=== PATIENT | male | born 1970 | race Caucasian/White ===

== ENCOUNTER 2020-01-15 10:56 | Emergency (ER) | payer OTHER ==
[~2020-01-15] VITALS: Ht 175.3 cm; Wt 74.9 kg
[2020-01-15 10:56] VITALS: BP 159/94
[2020-01-15] MEDS ORDERED: IV NORMAL SALINE 1000ML BAG 1,000 ML IV ONE (11:15)
--- NOTE | 2020-01-15 11:17 | PHYS DOC ---
Past Medical History Past Medical History: Seizure General Adult EDM: Chief Complaint: BACK PAIN OR INJURY HPI: HPI: 49-year-old male with significant history of polysubstance abuse, seizure disorder on Depakote 500 mg twice daily, who presents via EMS for the evaluation of breakthrough seizure. He reports a reported breakthrough seizure about 1 hour prior to arrival. Unclear duration of seizure activity. He has reportedly been out of his Depakote for the last 3 weeks or so. He also reports chronic unchanged baseline low back pain, without saddle anesthesia, bowel or bladder dysfunction. There is no noted tongue trauma or incontinence with his seizure. EMS states that the patient has called EMS for transport to [facility] several times over the last several days for various complaints. Review of Systems: Review of Systems: Gen: No fever, chills. Eyes: No blurred vision, diplopia. ENT: No nasal congestion, sore throat. CV: No CP, palpitations. Resp. No SOB, cough. GI: No abd pain, N/V. : No dysuria, hematuria. Neuro: No LEMUS, dizziness, weakness. Reports seizure. MSK: No myalgia, arthralgia. Reports back pain. Skin: No acute rash or lesion. Heart Score: Risk Factors: Risk Factors: DM, Current or recent (<one month) smoker, HTN, HLP, family history of CAD, obesity. Risk Scores: Score 0 - 3: 2.5% MACE over next 6 weeks - Discharge Home Score 4 - 6: 20.3% MACE over next 6 weeks - Admit for Clinical Observation Score 7 - 10: 72.7% MACE over next 6 weeks - Early Invasive Strategies Physical Exam: PE: Gen: NAD. Head: NC/AT. Eyes: No scleral icterus. No conjunctival injection. PERRL. ENT: MMM. Posterior OP clear. Neck: Supple. NT. No meningismus. CV: RRR. Peripheral pulses intact. Resp: CTAB. Abd: Soft. NT. ND. MSK: No peripheral cyanosis. No edema. Neuro: A&Ox3. Strength & sensation grossly intact throughout. No dysmetria. Skin. Warm. Dry. Psych: Flat affect. EKG: EKG: [] Radiology/Procedures: Radiology/Procedures: [] Course & Med Decision Making: Course & Med Decision Making Pertinent Labs and Imaging studies reviewed. (See chart for details) In summary, 49M p/w breakthrough seizure, though A&Ox4 on arrival, in the setting of being without his depakote. No focal neuro deficits. HDS. No meningismus. Patient was confronted because he was found to be smoking in his room. He became mildly agitated and thereafter wished to leave AMA. Risks of doing so were explained to the patient including but not limited to , disa bility, missed Dx, etc. Dragon Disclaimer: Torie Disclaimer: This electronic medical record was generated, in whole or in part, using a voice recognition dictation system. Departure Departure Impression: Primary Impression: Seizure Additional Impression: Left against medical advice Disposition: 01 HOME, SELF-CARE Condition: STABLE Justicifation of Admission Dx: Justifications for Admission: Justification of Admission Dx: N/A THERESE DORANTES DO Jan 15, 2020 11:17
[2020-01-15] MEDS ORDERED: DIVALPROEX DELAYED RELEASE 500 MG TABLET.DR. PO ONE (11:30)
[2020-01-15] MEDS ORDERED: LIDOCAINE (700MG/PATCH) PATCH. TD ONE (11:30)
[2020-01-15 11:50] LABS: BASO % 1 % (0-3); EOS # 0.2 x10^3/uL (0.0-0.7); EOS % 3 % (0-3); HEMATOCRIT 41.1 % (39.0-53.0); HEMOGLOBIN 14.1 g/dL (13.0-17.5); LYMPH # 0.9 x10^3/uL (1.0-4.8); LYMPH % 16 % (24-48); MEAN CORPUSCULAR HEMOGLOBIN 30 pg (25-35); MEAN CORPUSCULAR HGB CONC 34 g/dL (31-37); MEAN CORPUSCULAR VOLUME 87 fL (79-100); MONO # 0.3 x10^3/uL (0.0-1.1); MONO % 6 % (0-9); NEUT # 4.1 x10^3/uL (1.8-7.7); NEUT % 74 % (31-73); PLATELET COUNT 247 x10^3/uL (140-400); RED CELL DISTRIBUTION WIDTH 14.4 % (11.5-14.5); WHITE BLOOD COUNT 5.6 x10^3/uL (4.0-11.0)
[2020-01-15 12:03] LABS: CALCIUM 8.8 mg/dL (8.5-10.1); CREATININE 0.9 mg/dL (0.7-1.3); GFR 90.4; POTASSIUM 3.8 mmol/L (3.5-5.1)
[2020-01-15 12:09] LABS: ALBUMIN 3.5 g/dL (3.4-5.0); ALBUMIN/GLOBULIN RATIO 1.1 (1.0-1.7); MAGNESIUM 1.9 mg/dL (1.8-2.4); TOTAL BILIRUBIN 0.5 mg/dL (0.2-1.0); TOTAL PROTEIN 6.6 g/dL (6.4-8.2)
== END 2020-01-15 12:00 | disposition left against medical advice (07) ==
LOC: ER 10:56
DX: G40.909 Epilepsy, unspecified, not intractable, without status epilepticus (principal); M54.5 Low back pain; G89.29 Other chronic pain; F19.10 Other psychoactive substance abuse, uncomplicated
CPT/HCPCS: 36415; 80053; 83735; 84484; 85025; 99283; J7030

== ENCOUNTER 2020-01-25 22:40 | Emergency (ER) | payer OTHER ==
[~2020-01-25] VITALS: Ht 175.3 cm; Wt 75.0 kg
[2020-01-26] MEDS ORDERED: LORA0.5T96 PO (00:46)
--- NOTE | 2020-01-26 00:46 | PHYS DOC ---
Past Medical History Past Medical History: Asthma, COPD, Seizure Additional Past Medical Histor: TBI, Learning disability Past Medical History Limited secondary to mental disability status post TBI Past Surgical History: Other Additional Past Surgical Histo: Unknown, pt. poor historian Past Surgical History Limited secondary to mental disability status post TBI Smoking Status: Current Every Day Smoker Alcohol Use: Occasionally Drug Use: None Social History Limited secondary to mental disability status post TBI General Adult EDM: Chief Complaint: ASTHMA HPI: HPI: Patient is a 49 year old with past medical history of asthma and COPD presents with report of chest tightness and shortness of air that is been ongoing for the past few days. Patient was seen at [facility] twice yesterday. Patient was given a pro-air inhaler which she has at home but reports he is not been using it. Patient does report he continues to smoke with his shortness of air. Patient also reports some palpitations. Reports increased stressors at home. History of present illness partially limited due to patient's mental disability status post TBI Review of Systems: Review of Systems: Constitutional: Denies fever or chills Eyes: Denies redness or eye pain HENT: Denies nasal congestion or sore throat Respiratory: Denies cough; reports shortness of breath Cardiovascular: Denies chest pain or palpitations GI: Denies abdominal pain, nausea, or vomiting : Denies dysuria or hematuria Musculoskeletal: Denies back pain or joint pain Integument: Denies rash or skin lesions Neurologic: Denies headache, focal weakness or sensory changes Complete systems were reviewed and found to be within normal limits, except as documented in this note. Current Medications: Current Medications Medications (Trade) Dose Ordered Sig/Farideh Start Time Stop Time Status Last Admin Dose Admin Lorazepam (Ativan) 0.5 mg 1X ONCE 01/26/20 01:00 01/26/20 01:01 Allergies: Allergies: Allergies Coded Allergies Type Severity Reaction Last Updated Verified acetaminophen Allergy Unknown rash 01/15/20 Yes codeine Allergy Unknown rash 01/15/20 Yes Physical Exam: PE: Constitutional: Well developed, well nourished, anxious, non-toxic appearance HENT: Normocephalic, atraumatic Eyes: Conjunctiva normal, no discharge Neck: Normal range of motion, no tenderness, supple Cardiovascular: Heart rate normal, regular rhythm Lungs & Thorax: Bilateral breath sounds clear to auscultation, no wheezing Abdomen: Soft, no tenderness Skin: Warm, dry, no erythema, no rash Extremities: No tenderness, ROM intact, no edema Neurologic: Alert and oriented, no focal deficits noted Psychologic: Affect anxious, judgment normal EKG: EKG: @2301 NSR at 94bpm, NO ST elevation, QRS 76ms, QT/QTc 338/428ms, artifact noted to V1 Radiology/Procedures: Radiology/Procedures: [] Course & Med Decision Making: Course & Med Decision Making Patient presents with report of shortness of breath and palpitations. HPI and physical exam appear more consistent with anxiety. Patient was able to go out and smoke a cigarette and speaks full sentences. Lungs clear. Anxiety addressed. Patient reports he recently had chest x-ray and lab draws at [facility] yesterday. EKG stable. Patient stable for discharge with outpatient follow-up with PCP. Discussed findings and plan with patient, who acknowledges understanding and agreement. Sadion Disclaimer: Dragon Disclaimer: This electronic medical record was generated, in whole or in part, using a voice recognition dictation system. Departure Departure Impression: Primary Impression: Anxiety Disposition: HOME, SELF-CARE Condition: STABLE Referrals: DAIN PANTOJA (PCP) Patient Instructions: Anxiety and Panic Attacks, [id number] Scripts Lorazepam (ATIVAN) 0.5 Mg Tablet 0.5 MG PO TID PRN for ANXIETY, #10 TAB Prov: ROBER SCHWARTZ DO 01/26/20 Justicifation of Admission Dx: Justifications for Admission: Justification of Admission Dx: N/A ROBER SCHWARTZ DO Jan 26, 2020 00:46
[2020-01-26 00:54] VITALS: BP 141/86
[2020-01-26] MEDS ORDERED: LORazepam 0.5 MG TABLET PO ONE (01:00)
--- NOTE | 2020-01-26 15:21 | EKG ---
[facility] [address] [place] [address] Test Date: 2020-01-25 Test Time: 23:01:15 Pat Name: RAJWINDER PEDERSON Department: Room: Gender: M [employer]se[employer]: : 1970 Requested By: ROBER SCHWARTZ Order Number: [id number] Reading MD: Zev Diallo Measurements Intervals [place] Rate: 94 P: 34 HI: 138 QRS: 41 QRSD: 76 T: 46 QT: 338 QTc: 428 Interpretive Statements SINUS RHYTHM LEFT ATRIAL ABNORMALITY Electronically Signed On 02-17-2020 10:19:10 CDT by Zev Diallo
== END 2020-01-26 01:31 | disposition home or self-care (01) ==
LOC: ER 22:40
DX: F41.9 Anxiety disorder, unspecified (principal); R07.89 Other chest pain; J45.909 Unspecified asthma, uncomplicated; F17.200 Nicotine dependence, unspecified, uncomplicated; Z88.5 Allergy status to narcotic agent; Z88.6 Allergy status to analgesic agent
CPT/HCPCS: 93005; 99283; 99284

== ENCOUNTER 2020-02-19 04:21 | Emergency (ER) | payer OTHER ==
[~2020-02-19] VITALS: Ht 175.3 cm; Wt 78.6 kg
[~2020-02-19 04:21] MED LIST: LORA0.5T96 PO
--- NOTE | 2020-02-19 05:12 | PHYS DOC ---
Past Medical History Past Medical History: Asthma, COPD, Seizure Additional Past Medical Histor: TBI, Learning disability Past Surgical History: Other Additional Past Surgical Histo: Unknown, pt. poor historian Smoking Status: Current Every Day Smoker Alcohol Use: Rarely Drug Use: None General Adult EDM: Chief Complaint: Congestion HPI: HPI: Patient is a 49 year old male with past medical history of TBI and learning disability presents via ems for evaluation of shortness of breath. Patient called 911 and requested to be transported to [facility]. Yesterday patient received at [employer] for 911 abuse. Patient states yesterday he called 911 30x because he is obsessed with calling 911. He states he feels short of breath. States it has been ongoing x 2 weeks. He denies any cough or congestion fever or chills. He states he has chronic chest pain. He is requesting peptobismal, sprite, and something to eat. Patient is in no acute distress, vital signs are stable. Review of Systems: Review of Systems: Constitutional: Denies fever or chills. [] Eyes: Denies change in visual acuity. [] HENT: Denies nasal congestion or sore throat. [] Respiratory: Denies cough or shortness of breath. [] Cardiovascular: Denies chest pain or edema. [] GI: Denies abdominal pain, nausea, vomiting, bloody stools or diarrhea. [] : Denies dysuria. [] Musculoskeletal: Denies back pain or joint pain. [] Integument: Denies rash. [] Neurologic: Denies headache, focal weakness or sensory changes. [] Endocrine: Denies polyuria or polydipsia. [] Lymphatic: Denies swollen glands. [] Psychiatric: Denies depression or anxiety. [] Heart Score: Risk Factors: Risk Factors: DM, Current or recent (<one month) smoker, HTN, HLP, family history of CAD, obesity. Risk Scores: Score 0 - 3: 2.5% MACE over next 6 weeks - Discharge Home Score 4 - 6: 20.3% MACE over next 6 weeks - Admit for Clinical Observation Score 7 - 10: 72.7% MACE over next 6 weeks - Early Invasive Strategies Allergies: Allergies: Allergies Coded Allergies Type Severity Reaction Last Updated Verified acetaminophen Allergy Intermediate rash 01/26/20 Yes codeine Allergy Intermediate rash 01/26/20 Yes Physical Exam: PE: Constitutional: Well developed, well nourished, no acute distress, non-toxic appearance. [] HENT: Normocephalic, atraumatic, bilateral external ears normal, oropharynx moist, no oral exudates, nose normal. [] Eyes: PERRLA, EOMI, conjunctiva normal, no discharge. [] Neck: Normal range of motion, no tenderness, supple, no stridor. [] Cardiovascular:Heart rate regular rhythm, no murmur [] Lungs & Thorax: Bilateral breath sounds clear to auscultation [] Abdomen: Bowel sounds normal, soft, no tenderness, no masses, no pulsatile sultana s. [] Skin: Warm, dry, no erythema, no rash. [] Back: No tenderness, no CVA tenderness. [] Extremities: No tenderness, no cyanosis, no clubbing, ROM intact, no edema. [] Neurologic: Alert and oriented X 3, normal motor function, normal sensory function, no focal deficits noted. [] Psychologic: Affect normal, judgement normal, mood normal. [] EKG: EKG: [] Radiology/Procedures: Radiology/Procedures: [] Course & Med Decision Making: Course & Med Decision Making Pertinent Labs and Imaging studies reviewed. (See chart for details) [] Dragon Disclaimer: Dragon Disclaimer: This electronic medical record was generated, in whole or in part, using a voice recognition dictation system. Departure Departure Impression: Primary Impression: Feared condition not demonstrated Referrals: DAIN PANTOJA (PCP) Justicifation of Admission Dx: Justifications for Admission: Justification of Admission Dx: N/A KATHIE HERRON DO Feb 19, 2020 05:12
[2020-02-19 05:28] VITALS: BP 147/97
== END 2020-02-19 06:30 | disposition home or self-care (01) ==
LOC: ER 04:21
DX: R06.02 Shortness of breath (principal); R07.89 Other chest pain; J44.9 Chronic obstructive pulmonary disease, unspecified; F17.200 Nicotine dependence, unspecified, uncomplicated; Z87.820 Personal history of traumatic brain injury; Z98.890 Other specified postprocedural states; Z88.5 Allergy status to narcotic agent; Z88.6 Allergy status to analgesic agent
CPT/HCPCS: 99283

== ENCOUNTER 2020-04-08 18:27 | Emergency (ER) | payer OTHER ==
[~2020-04-08] VITALS: Ht 167.6 cm; Wt 86.0 kg
[2020-04-08 19:18] VITALS: BP 182/99
== END 2020-04-08 20:22 | disposition left against medical advice (07) ==
LOC: ER 18:27
DX: R11.2 Nausea with vomiting, unspecified (principal); R10.9 Unspecified abdominal pain; R19.7 Diarrhea, unspecified; Z53.21 Procedure and treatment not carried out due to patient leaving prior to being seen by health care provider
CPT/HCPCS: 82962

== ENCOUNTER 2021-05-31 19:18 | Inpatient (IN) | payer OTHER, MEDICAID ==
[~2021-05-31] VITALS: Ht 175.3 cm; Wt 79.4 kg
[2021-05-31 20:15] LABS: BASO % 1 % (0-3); EOS # 0.1 x10^3/uL (0.0-0.7); EOS % 2 % (0-3); HEMATOCRIT 34.2 % (39.0-53.0); HEMOGLOBIN 11.9 g/dL (13.0-17.5); LYMPH # 1.7 x10^3/uL (1.0-4.8); LYMPH % 30 % (24-48); MEAN CORPUSCULAR HEMOGLOBIN 30 pg (25-35); MEAN CORPUSCULAR HGB CONC 35 g/dL (31-37); MEAN CORPUSCULAR VOLUME 86 fL (79-100); MONO # 0.6 x10^3/uL (0.0-1.1); MONO % 11 % (0-9); NEUT # 3.2 x10^3/uL (1.8-7.7); NEUT % 57 % (31-73); PLATELET COUNT 180 x10^3/uL (140-400); RED BLOOD COUNT 3.97 x10^6/uL (4.30-5.70); RED CELL DISTRIBUTION WIDTH 13.6 % (11.5-14.5); WHITE BLOOD COUNT 5.6 x10^3/uL (4.0-11.0)
[2021-05-31] MEDS ORDERED: IV NORMAL SALINE 1000ML BAG 1,000 ML IV ONE (20:15)
--- NOTE | 2021-05-31 20:16 | PHYS DOC ---
Past Medical History Past Medical History: Asthma, COPD, Seizure Additional Past Medical Histor: TBI, Learning disability Past Surgical History: Other Additional Past Surgical Histo: Unknown, pt. poor historian Smoking Status: Current Every Day Smoker Alcohol Use: Occasionally Drug Use: None General Adult EDM: Chief Complaint: DIARRHEA HPI: HPI: 50 yo M past medical history of hypertension, epilepsy, bipolar disorder, schizophrenia and baseline tremor, presents to the ED with complaints of 4 episodes of watery, brown diarrhea prior to ED arrival. Patient was brought to the ED by EMS, clothing soiled with stool. Patient denies any recent anti biotics or hospitalizations. Reports associated diffuse "stomach pain". Denies any known history of Covid and has not been vaccinated for Covid. No associated fever chills, sore throat, cough, anorexia or fatigue, weakness, chest pain, shortness of breath, nausea or vomiting. Denies any alcohol or drug use. Denies any seizure activity, syncope or head injury. Review of Systems: Review of Systems: Constitutional: Denies fever or chills. [] Eyes: Denies change in visual acuity. [] HENT: Denies nasal congestion or sore throat. [] Respiratory: Denies cough or shortness of breath. [] Cardiovascular: Denies chest pain or edema or syncope GI: Denies nausea, vomiting, melena or hematochezia : Denies dysuria or hematuria Musculoskeletal: Denies back pain or joint pain. [] Integument: Denies rash or diaphoresis Neurologic: Denies headache, focal weakness or sensory changes. [] Endocrine: Denies polyuria or polydipsia. [] Lymphatic: Denies swollen glands. [] Psychiatric: Denies depression or anxiety. [] Heart Score: C/O Chest Pain: No Risk Factors: Risk Factors: DM, Current or recent (<one month) smoker, HTN, HLP, family history of CAD, obesity. Risk Scores: Score 0 - 3: 2.5% MACE over next 6 weeks - Discharge Home Score 4 - 6: 20.3% MACE over next 6 weeks - Admit for Clinical Observation Score 7 - 10: 72.7% MACE over next 6 weeks - Early Invasive Strategies Current Medications: Current Medications Medications (Trade) Dose Ordered Sig/Farideh Start Time Stop Time Status Last Admin Dose Admin Sodium Chloride 1,000 ml @ 1,000 mls/hr 1X ONCE 05/31/21 20:15 05/31/21 21:14 UNV Allergies: Allergies: Allergies Coded Allergies Type Severity Reaction Last Updated Verified acetaminophen Allergy Intermediate rash 01/26/20 Yes codeine Allergy Intermediate rash 01/26/20 Yes methylphenidate Allergy Intermediate 05/31/21 Yes Physical Exam: PE: Constitutional: Unkept, non-toxic appearance. HENT: Normocephalic, atraumatic, dry mucous membranes Eyes: EOMI, conjunctiva normal, no discharge. Neck: Normal range of motion, supple, Cardiovascular: S1/2 present, regular rhythm Lungs & Thorax: Speaking in full sentences, bilateral equal chest rise, no tachypnea or increased work of breathing Abdomen: soft, no distention, reports diffuse tenderness but has no rigidity or guarding, no elicited grimace Skin: Warm, dry, no erythema, no rash. [] Extremities: No tenderness, no cyanosis, Neurologic: Alert and oriented X 3, normal motor function, normal sensory function, no focal deficits noted tremulous extremities Psychologic: Flat affect, calm mood EKG: EKG: [] Radiology/Procedures: Radiology/Procedures: IMAGING REPORT Signed PATIENT: RAJWINDER PEDERSON AACCOUNT: [id number] : 1970 LOCATION: ER AGE: 50 SEX: M EXAM STATUS: REG ER ORD. PHYSICIAN: GABRIELA KAHN DO REASON: diffuse abd pain PROCEDURE: CT ABD PELV W/ IV CONTRST ONLY Exam: CT abdomen/pelvis with intravenous contrast Indication: Diffuse abdominal pain Comparison: CT abdomen and pelvis 02/27/2013 Technique: Helical CT imaging performed of the abdomen and pelvis after the intravenous administration of 75 mL Omnipaque 300 contrast. Sagittal and coronal reformats were obtained. One or more of the following individualized dose reduction techniques were util ized for this examination: 1. Automated exposure control 2. Adjustment of the mA and/or kV according to patient size 3. Use of iterative reconstruction technique. Findings: Exam is mildly limited by motion artifact. Lower chest: Lung bases are clear. Heart is normal in size. There are coronary artery calcifications. Liver: The liver is mildly enlarged measuring 19.7 cm in length. No focal liver lesion. Gallbladder/Biliary Tree: Gallbladder is contracted. Bile ducts are normal. Pancreas: Normal Spleen: Normal. Adrenal Glands: Normal. Kidneys/Ureters/Bladder: Kidneys are normal size and enhance symmetrically. There is a 1.8 cm simple cyst in the inferior left renal pole. No hydronephrosis. Ureters and bladder are normal Reproductive Organs: Prostate gland is normal. Stomach, small bowel, and colon: Small hiatal hernia. The small bowel is normal. There the appendix is mildly enlarged with wall thickening, hyperenhancement, and mild surrounding fat stranding, suspicious for acute appendicitis. The appendix measures up to 9 mm in diameter. The colon is unremarkable. Vasculature: No aortic aneurysm. Mild scattered calcified atherosclerosis. Lymph Nodes: No lymphadenopathy. Peritoneum and retroperitoneum: No free fluid or free air. Bones: No acute osseous abnormality. There is degenerative joint disease of the hips, greater on the right. IMPRESSION: 1. Uncomplicated acute appendicitis. 2. Small hiatal hernia. FOR INTERNAL CODING PURPOSES Critical result: Findings discussed with Gabriela Kahn at 05/31/2021 9:24 PM. And 10:55 PM RESULT CODE: (C) Electronically signed by: Lexi Moore MD (05/31/2021 10:59 PM) [facility] DICTATED and SIGNED BY: LEXI MOORE MD DATE: 05/31/21 [id number] Course & Med Decision Making: Course & Med Decision Making Pertinent Labs and Imaging studies reviewed. (See chart for details) Concern for acute, uncomplicated appendicitis in the setting of multiple e pisodes of diarrhea and diffuse abdominal pain. Patient n.p.o. and started on cefoxitin. Will admit to medicine for further medical management. Spoke to Dr. Rivas, general surgery regarding this patient-full consultation to follow. Patient stable at time of admission and agrees with this plan. I have spoken with the patient and/or caregivers. I have explained the patient's condition, diagnosis and treatment plan based on the information available to me at this time. I have answered the patient's and/or caregivers questions and answered any concerns. The patient and/or caregivers have as good an understanding of the patient's diagnosis, condition and treatment plan as can be expected at this point. The patient has been stabilized within the capability of the emergency department. The patient will be transported for further care and management or will be moved to an observation or inpatient service. I have communicated with the staff or medical practitioner taking over this patient's care. Torie Disclaimer: Torie Disclaimer: This electronic medical record was generated, in whole or in part, using a voice recognition dictation system. Departure Departure Impression: Primary Impression: Acute appendicitis Additional Impression: Diarrhea Disposition: ADMITTED INPATIENT Admitting Physician: ASAF Day) Condition: STABLE Referrals: DAIN PANTOJA (PCP) GABRIELA KAHN DO May 31, 2021 20:16
[2021-05-31 20:28] LABS: CALCIUM 8.6 mg/dL (8.5-10.1); CREATININE 0.8 mg/dL (0.7-1.3); GFR 103.2; POTASSIUM 3.4 mmol/L (3.5-5.1)
[2021-05-31] MEDS ORDERED: IOHEXOL 300 MG/ML 100ML VIAL. IV ONE (20:30)
[2021-05-31 20:36] LABS: ALBUMIN 3.6 g/dL (3.4-5.0); ALBUMIN/GLOBULIN RATIO 1.1 (1.0-1.7); MAGNESIUM 1.9 mg/dL (1.8-2.4); TOTAL BILIRUBIN 0.2 mg/dL (0.2-1.0); TOTAL PROTEIN 6.9 g/dL (6.4-8.2)
[2021-05-31 20:42] LABS: BARBITURATES NEG (NEG); BENZODIAZEPINES NEG (NEG); CANNABINOIDS NEG (NEG); COCAINE NEG (NEG); METHADONE NEG (NEG); OPIATES NEG (NEG); PHENCYCLIDINE NEG (NEG)
[2021-05-31 20:43] LABS: AMPHETAMINE/METHAMPHETAMINE NEG (NEG)
[2021-05-31] MEDS ORDERED: CONTRAST GIVEN. MC PRN (20:45)
[2021-05-31] MEDS ORDERED: MIDAZOLAM HCL/PF 5 MG/5 ML VIAL. NS ONE (22:00)
--- NOTE | 2021-05-31 23:01 | RAD ---
Exam: CT abdomen/pelvis with intravenous contrast Indication: Diffuse abdominal pain Comparison: CT abdomen and pelvis 02/27/2013 Technique: Helical CT imaging performed of the abdomen and pelvis after the intravenous administratio n of 75 mL Omnipaque 300 contrast. Sagittal and coronal reformats were obtained. One or more of the following individualized dose reduction techniques were utilized for this examinat ion: 1. Automated exposure control 2. Adjustment of the mA and/or kV according to patient size 3. Use of iterative reconstruction technique. Findings: Exam is mildly limited by motion artifact. Lower chest: Lung bases are clear. Heart is normal in size. There are coronary artery calcifications. Liver: The liver is mildly enlarged measuring 19.7 cm in length. No focal liver lesion. Gallbladder/Biliary Tree: Gallbladder is contracted. Bile ducts are normal. Pancreas: Normal Spleen: Normal. Adrenal Glands: Normal. Kidneys/Ureters/Bladder: Kidneys are normal size and enhance symmetrically. There is a 1.8 cm simple cyst in the inferior left renal pole. No hydronephrosis. Ureters and bladder are normal Reproductive Organs: Prostate gland is normal. Stomach, small bowel, and colon: Small hiatal hernia. The small bowel is normal. There the appendix i s mildly enlarged with wall thickening, hyperenhancement, and mild surrounding fat stranding, suspici ous for acute appendicitis. The appendix measures up to 9 mm in diameter. The colon is unremarkable. Vasculature: No aortic aneurysm. Mild scattered calcified atherosclerosis. Lymph Nodes: No lymphadenopathy. Peritoneum and retroperitoneum: No free fluid or free air. Bones: No acute osseous abnormality. There is degenerative joint disease of the hips, greater on the right. IMPRESSION: 1. Uncomplicated acute appendicitis. 2. Small hiatal hernia. FOR INTERNAL CODING PURPOSES Critical result: Findings discussed with Gabriela Ware at 05/31/2021 9:24 PM. And 10:55 PM RESULT CODE: (C) Electronically signed by: Lexi Moore MD (05/31/2021 10:59 PM) [facility]
[2021-05-31] MEDS ORDERED: ONDANSETRON PF 4 MG/2 ML VIAL. IVP PRN (23:15)
[2021-05-31 23:54] VITALS: BP 107/61
[2021-06-01] MEDS ORDERED: DIVA500T2 PO (00:04)
[2021-06-01] MEDS: IV NORMAL SALINE 1000ML BAG 1,000 ML IV SCH ×4 (00:31→19:24)
[2021-06-01] MEDS ORDERED: NICOTINE 21MG PATCH. TD PRN ×2 (01:00→01:15)
[2021-06-01] MEDS ORDERED: ONDANSETRON PF 4 MG/2 ML VIAL. IVP PRN ×2 (01:00→13:00)
[2021-06-01] MEDS ORDERED: BENZOCAINE/MENTHOL LOZENGE. PO PRN (01:00)
[2021-06-01] MEDS ORDERED: NICOTINE POLACRILEX 2MG GUM PACKAGE of 12. BC PRN (01:00)
[2021-06-01] MEDS: PIPERACILLIN/TAZOBACTAM 3.375 GM in IV NORMAL SALINE 50ML 50 ML IV SCH ×5 (01:36→23:43)
[2021-06-01 03:17] VITALS: BP 104/69
--- NOTE | 2021-06-01 06:35 | PDOC1 ---
History and Physical Date of Admission Date of Admission DATE: 06/01/21 TIME: : Identification/Chief Complaint Chief Complaint Diarrhea Source Source: Patient History of Present Illness History of Present Illness Patient is a 50-year-old male with past medical history epilepsy, schizophrenia, TBI, learning disability, bipolar disorder, who presents to the ED with complaints of 4 episodes of watery brown diarrhea just prior to arrival in the ED. He reports associated abdominal pain. He arrived via EMS with closing so in stool. Denies any history of recent antibiotic use or hospitalization. He has not been vaccinated against COVID-19 and denies any known exposure. Labs on admission showed WBC 5.6, hemoglobin 11.9, hematocrit 34.2, potassium 3.4. CT abdomen chest pelvis showed acute appendicitis and small hiatal hernia. He received IV fluids was initiated on broad-spectrum antibiotics in the ED. Will admit patient for further medical management. Past Medical History Past Medical History Epilepsy, bipolar disorder, schizophrenia, learning disability, TBI, Past Surgical History Past Surgical History Reviewed with patient but denies any surgical history Family History Family History Reviewed with patient but denies significant family history Social History Smoke: 1 pack per day ALCOHOL: occassional Drugs: None Current Problem List Problem List Problems Medical Problems: (1) Acute appendicitis Status: Acute (2) Diarrhea Status: Acute Current Medications Current Medications Current Medications Sodium Chloride 1,000 ml @ 1,000 mls/hr 1X ONCE IV Last administered on 05/31/21at 20:13; Start 05/31/21 at 20:15; Stop 05/31/21 at 21:14; Status DC Iohexol (Omnipaque 300 Mg/ml) 75 ml 1X ONCE IV Last administered on 05/31/21at 20:36; Start 05/31/21 at 20:30; Stop 05/31/21 at 20:38; Status DC Info (CONTRAST GIVEN -- Rx MONITORING) 1 each PRN DAILY PRN MC SEE COMMENTS; Start 05/31/21 at 20:45; Stop 06/02/21 at 20:44 Midazolam HCl (Versed) 4 mg 1X ONCE NS ; Start 05/31/21 at 22:00; Stop 05/08 12/25 at 22:01; Status DC Ondansetron HCl (Zofran) 4 mg PRN Q8HRS PRN IVP NAUSEA/VOMITING 1ST CHOICE; Start 05/31/21 at 23:15; Stop 06/01/21 at 01:00; Status DC Sodium Chloride 1,000 ml @ 100 mls/hr Q10H IV Last administered on 06/01/21at 00:31; Start 05/31/21 at 23:30; Stop 06/01/21 at 23:29 Ondansetron HCl (Zofran) 4 mg PRN Q4HRS PRN IVP NAUSEA/VOMITING 1ST CHOICE; Start 06/01/21 at 01:00 Throat Lozenges (Cepacol Sore Throat Lozenge) 1 tabitha PRN Q2HRS PRN PO SORE THROAT; Start 06/01/21 at 01:00 Nicotine Polacrilex (Nicorette Gum) 1 each PRN Q1HR PRN BC SMOKING CESSATION; Start 06/01/21 at 01:00; Stop 06/01/21 at 04:16; Status DC Fentanyl Citrate (Fentanyl 2ml Vial) 25 mcg PRN Q3HRS PRN IVP SEVERE PAIN 7-10; Start 06/01/21 at 01:00 Piperacillin Sod/ Tazobactam Sod 3.375 gm/Sodium Chloride 50 ml @ 100 mls/hr Q6HRS IV Last administered on 06/01/21at 05:40; Start 06/01/21 at 01:00 Nicotine (Nicoderm Cq 21mg) 1 patch PRN DAILY PRN TD SMOKING CESSATION; Start 06/01/21 at 01:00; Status UNV Nicotine (Nicoderm Cq 21mg) 1 patch PRN DAILY PRN TD SMOKING CESSATION Last administered on 06/01/21at 01:36; Start 06/01/21 at 01:15 Active Scripts Active Ativan (Lorazepam) 0.5 Mg Tablet 0.5 Mg PO TID PRN Reported Depakote (Divalproex Sodium) 500 Mg Tablet.dr 1,000 Mg PO BID Allergies Allergies: Coded Allergies: acetaminophen (Verified Allergy, Intermediate, rash, 01/26/20) codeine (Verified Allergy, Intermediate, rash, 01/26/20) methylphenidate (Verified Allergy, Intermediate, 05/31/21) ROS Review of System GENERAL: No history of weight change, weakness or fevers. SKIN: No bruising, hair changes or rashes. EYES: No blurred, double or loss of vision. NOSE AND THROAT: No history of nosebleeds, hoarseness or sore throat. HEART: Denies chest pain, denies palpitations. LUNGS: Denies cough, hemoptysis, wheezing or shortness of breath. GASTROINTESTINAL: Abdominal pain, diarrhea. Denies nausea or vomiting. GENITOURINARY: Denies dysuria, frequency, urgency, hematuria. NEUROLOGIC: Denies history of numbness, tingling, tremor or weakness. PSYCHIATRIC: Denies anxiety, denies depression. ENDOCRINE: No history of heat or cold intolerance, polyuria or polydipsia. EXTREMITIES: Denies muscle weakness, joint pain, pain on walking or stiffness. Physical Exam Physical Exam General: Alert, Oriented X3, Cooperative, No acute distress HEENT: PERRLA, EOMI Lungs: Clear to auscultation, Normal air movement Heart: RRR, no murmurs Cardiovascular: S1, S2 Abdomen: Normal bowel sounds, Soft, mild generalized tenderness Extremities: No clubbing, No cyanosis Skin: No rashes, No significant lesion Neuro: Normal speech, Normal tone, Sensation intact Psych/Mental Status: Mental status NL, Mood NL Vitals Vitals Vital Signs Date Time Temp Pulse Resp B/P (MAP) Pulse Ox O2 Delivery O2 Flow Rate FiO2 06/01/21 03:17 97.9 66 20 104/69 (81) 93 Room Air 97.9 Labs Labs Laboratory Tests Test 05/31/21 20:05 05/31/21 20:24 White Blood Count 5.6 x10^3/uL (4.0-11.0) Red Blood Count 3.97 x10^6/uL (4.30-5.70) Hemoglobin 11.9 g/dL (13.0-17.5) Hematocrit 34.2 % (39.0-53.0) Mean Corpuscular Volume 86 fL (79-100) Mean Corpuscular Hemoglobin 30 pg (25-35) Mean Corpuscular Hemoglobin Concent 35 g/dL (31-37) Red Cell Distribution Width 13.6 % (11.5-14.5) Platelet Count 180 x10^3/uL (140-400) Neutrophils (%) (Auto) 57 % (31-73) Lymphocytes (%) (Auto) 30 % (24-48) Monocytes (%) (Auto) 11 % (0-9) Eosinophils (%) (Auto) 2 % (0-3) Basophils (%) (Auto) 1 % (0-3) Neutrophils # (Auto) 3.2 x10^3/uL (1.8-7.7) Lymphocytes # (Auto) 1.7 x10^3/uL (1.0-4.8) Monocytes # (Auto) 0.6 x10^3/uL (0.0-1.1) Eosinophils # (Auto) 0.1 x10^3/uL (0.0-0.7) Basophils # (Auto) 0.0 x10^3/uL (0.0-0.2) Sodium Level 138 mmol/L (136-145) Potassium Level 3.4 mmol/L (3.5-5.1) Chloride Level 101 mmol/L (98-107) Carbon Dioxide Level 27 mmol/L (21-32) Anion Gap 10 (6-14) Blood Urea Nitrogen 7 mg/dL (8-26) Creatinine 0.8 mg/dL (0.7-1.3) Estimated GFR (Cockcroft-Gault) 103.2 BUN/Creatinine Ratio 9 (6-20) Glucose Level 83 mg/dL (70-99) Calcium Level 8.6 mg/dL (8.5-10.1) Magnesium Level 1.9 mg/dL (1.8-2.4) Total Bilirubin 0.2 mg/dL (0.2-1.0) Aspartate Amino Transf (AST/SGOT) 16 U/L (15-37) Alanine Aminotransferase (ALT/SGPT) 19 U/L (16-63) Alkaline Phosphatase 56 U/L (46-116) Lactate Dehydrogenase 154 U/L (85-227) Creatine Kinase 96 U/L (39-308) Total Protein 6.9 g/dL (6.4-8.2) Albumin 3.6 g/dL (3.4-5.0) Albumin/Globulin Ratio 1.1 (1.0-1.7) Ethyl Alcohol Level < 10 mg/dL (0-10) Urine Opiates Screen Neg (NEG) Urine Methadone Screen Neg (NEG) Urine Barbiturates Neg (NEG) Urine Phencyclidine Screen Neg (NEG) Urine Amphetamine/Methamphetamine Neg (NEG) Urine Benzodiazepines Screen Neg (NEG) Urine Cocaine Screen Neg (NEG) Urine Cannabinoids Screen Neg (NEG) Urine Ethyl Alcohol Neg (NEG) Laboratory Tests Test 05/31/21 20:05 05/31/21 20:24 White Blood Count 5.6 x10^3/uL (4.0-11.0) Red Blood Count 3.97 x10^6/uL (4.30-5.70) Hemoglobin 11.9 g/dL (13.0-17.5) Hematocrit 34.2 % (39.0-53.0) Mean Corpuscular Volume 86 fL (79-100) Mean Corpuscular Hemoglobin 30 pg (25-35) Mean Corpuscular Hemoglobin Concent 35 g/dL (31-37) Red Cell Distribution Width 13.6 % (11.5-14.5) Platelet Count 180 x10^3/uL (140-400) Neutrophils (%) (Auto) 57 % (31-73) Lymphocytes (%) (Auto) 30 % (24-48) Monocytes (%) (Auto) 11 % (0-9) Eosinophils (%) (Auto) 2 % (0-3) Basophils (%) (Auto) 1 % (0-3) Neutrophils # (Auto) 3.2 x10^3/uL (1.8-7.7) Lymphocytes # (Auto) 1.7 x10^3/uL (1.0-4.8) Monocytes # (Auto) 0.6 x10^3/uL (0.0-1.1) Eosinophils # (Auto) 0.1 x10^3/uL (0.0-0.7) Basophils # (Auto) 0.0 x10^3/uL (0.0-0.2) Sodium Level 138 mmol/L (136-145) Potassium Level 3.4 mmol/L (3.5-5.1) Chloride Level 101 mmol/L (98-107) Carbon Dioxide Level 27 mmol/L (21-32) Anion Gap 10 (6-14) Blood Urea Nitrogen 7 mg/dL (8-26) Creatinine 0.8 mg/dL (0.7-1.3) Estimated GFR (Cockcroft-Gault) 103.2 BUN/Creatinine Ratio 9 (6-20) Glucose Level 83 mg/dL (70-99) Calcium Level 8.6 mg/dL (8.5-10.1) Magnesium Level 1.9 mg/dL (1.8-2.4) Total Bilirubin 0.2 mg/dL (0.2-1.0) Aspartate Amino Transf (AST/SGOT) 16 U/L (15-37) Alanine Aminotransferase (ALT/SGPT) 19 U/L (16-63) Alkaline Phosphatase 56 U/L (46-116) Lactate Dehydrogenase 154 U/L (85-227) Creatine Kinase 96 U/L (39-308) Total Protein 6.9 g/dL (6.4-8.2) Albumin 3.6 g/dL (3.4-5.0) Albumin/Globulin Ratio 1.1 (1.0-1.7) Ethyl Alcohol Level < 10 mg/dL (0-10) Urine Opiates Screen Neg (NEG) Urine Methadone Screen Neg (NEG) Urine Barbiturates Neg (NEG) Urine Phencyclidine Screen Neg (NEG) Urine Amphetamine/Methamphetamine Neg (NEG) Urine Benzodiazepines Screen Neg (NEG) Urine Cocaine Screen Neg (NEG) Urine Cannabinoids Screen Neg (NEG) Urine Ethyl Alcohol Neg (NEG) Images Images [facility] [address] [place] [address] IMAGING REPORT Signed PATIENT: RAJWINDER PEDERSON AACCOUNT: [id number] : 1970 LOCATION: ER AGE: 50 SEX: M EXAM STATUS: REG ER ORD. PHYSICIAN: RUTHY KAHN DO REASON: diffuse abd pain PROCEDURE: CT ABD PELV W/ IV CONTRST ONLY Exam: CT abdomen/pelvis with intravenous contrast Indication: Diffuse abdominal pain Comparison: CT abdomen and pelvis 02/27/2013 Technique: Helical CT imaging performed of the abdomen and pelvis after the intravenous administration of 75 mL Omnipaque 300 contrast. Sagittal and coronal reformats were obtained. One or more of the following individualized dose reduction techniques were utilized for this examination: 1. Automated exposure control 2. Adjustment of the mA and/or kV according to patient size 3. Use of iterative reconstruction technique. Findings: Exam is mildly limited by motion artifact. Lower chest: Lung bases are clear. Heart is normal in size. There are coronary artery calcifications. Liver: The liver is mildly enlarged measuring 19.7 cm in length. No focal liver lesion. Gallbladder/Biliary Tree: Gallbladder is contracted. Bile ducts are normal. Pancreas: Normal Spleen: Normal. Adrenal Glands: Normal. Kidneys/Ureters/Bladder: Kidneys are normal size and enhance symmetrically. There is a 1.8 cm simple cyst in the inferior left renal pole. No hydronephrosis. Ureters and bladder are normal Reproductive Organs: Prostate gland is normal. Stomach, small bowel, and colon: Small hiatal hernia. The small bowel is normal. There the appendix is mildly enlarged with wall thickening, hyperenhancement, and mild surrounding fat stranding, suspicious for acute appendicitis. The appendix measures up to 9 mm in diameter. The colon is unremarkable. Vasculature: No aortic aneurysm. Mild scattered calcified atherosclerosis. Lymph Nodes: No lymphadenopathy. Peritoneum and retroperitoneum: No free fluid or free air. Bones: No acute osseous abnormality. There is degenerative joint disease of the hips, greater on the right. IMPRESSION: 1. Uncomplicated acute appendicitis. 2. Small hiatal hernia. VTE Prophylaxis Ordered VTE Prophylaxis Devices: No VTE Pharmacological Prophylaxi: Yes Assessment/Plan Assessment/Plan Acute appendicitis Hypokalemia Normocytic anemia History epilepsy History schizophrenia Plan: Consultation placed to general surgery Continue IV Zosyn IV pain medication and antiemetics Will keep patient n.p.o. for anticipated surgical intervention FEN - NPO PPX - Heparin FULL CODE Dispo - inpatient for above Justifications for Admission Other Justification PEGGY STEPHEN MD Jun 01, 2021 06:34
[2021-06-01 07:00] VITALS: BP 115/73
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
[2021-06-01] MEDS ORDERED: BUPIVACAINE-EPI 0.5% 30 ML VIAL KIT. ONE (10:35)
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
[2021-06-01 11:00] VITALS: BP 110/68
[2021-06-01] MEDS ORDERED: PROPOFOL 10 MG/ML (20ML) VIAL. IV ONE (11:24)
[2021-06-01] MEDS ORDERED: LIDOCAINE 2% PF 5 ML VIAL. ONE (11:24)
[2021-06-01] MEDS ORDERED: ONDANSETRON PF 4 MG/2 ML VIAL. ONE (11:24)
[2021-06-01] MEDS ORDERED: fentaNYL PF VIAL 100 MCG/2 ML VIAL ONE ×2 (11:25→13:41)
[2021-06-01] MEDS ORDERED: DEXAMETHASONE SOD PHOS 4 MG/ML VIAL ONE (11:25)
[2021-06-01] MEDS ORDERED: ROCURONIUM 50 MG/5 ML VIAL. ONE ×2 (11:26→12:29)
[2021-06-01] MEDS ORDERED: NEOSTIGMINE METHYLSULFATE 5 MG/5 ML SYRINGE. ONE (11:26)
[2021-06-01] MEDS ORDERED: GLYCOPYRROLATE 1 MG/5 ML VIAL. ONE ×3 (11:27→12:54)
[2021-06-01] MEDS ORDERED: SUCCINYLCHOLINE 200 MG/10 ML VIAL. ONE (11:35)
[2021-06-01] MEDS ORDERED: MIDAZOLAM HCL/PF 2 MG/2 ML VIAL. ONE (11:36)
[2021-06-01] MEDS ORDERED: AMLO-187 PO (11:46)
[2021-06-01] MEDS ORDERED: MULT-445 PO (11:46)
[2021-06-01] MEDS ORDERED: FLUV100T16 PO (11:46)
[2021-06-01] MEDS ORDERED: BENZ1TAB5 PO (11:46)
[2021-06-01] MEDS ORDERED: ALBU2.5V8 INH (11:46)
[2021-06-01] MEDS ORDERED: NICO4LOZ93 PO (11:46)
[2021-06-01] MEDS ORDERED: KETO15CR2 TP (11:46)
[2021-06-01] MEDS ORDERED: SENN1TAB37 PO (11:46)
[2021-06-01] MEDS ORDERED: FLUP5TAB3 PO (11:46)
[2021-06-01] MEDS ORDERED: DIVA500T17 PO (11:46)
[2021-06-01] MEDS ORDERED: ATEN100T PO (11:46)
[2021-06-01] MEDS ORDERED: LOSA100T14 PO (11:46)
[2021-06-01] MEDS ORDERED: PANT40TA77 PO (11:46)
[2021-06-01] MEDS ORDERED: SIMV20TA18 PO (11:46)
[2021-06-01] MEDS ORDERED: LOPE2CAP3 PO (11:46)
[2021-06-01] MEDS ORDERED: POLY17PO52 PO (11:46)
[2021-06-01] MEDS ORDERED: CETI10TA16 PO (11:46)
[2021-06-01] MEDS ORDERED: ASEN5TAB7 SL (11:46)
[2021-06-01] MEDS ORDERED: HYDR-2869 PO (11:46)
[2021-06-01] MEDS ORDERED: ONDA4TAB12 PO (11:46)
[2021-06-01] MEDS ORDERED: OXYB5TAB10 PO (11:46)
[2021-06-01] MEDS ORDERED: HYDR12.58 PO (11:46)
[2021-06-01] MEDS ORDERED: DICL150D9 TP (11:46)
[2021-06-01] MEDS ORDERED: HYDROmorphone 2 MG/ML VIAL IVP PRN (12:00)
[2021-06-01] MEDS ORDERED: IV RINGERS,LACTATED 1000ML 1,000 ML IV SCH (12:00)
[2021-06-01] MEDS ORDERED: fentaNYL PF VIAL 100 MCG/2 ML VIAL IVP PRN ×2 (12:00)
[2021-06-01] MEDS ORDERED: PROCHLORPERAZINE 10 MG/2 ML VIAL. IVP PRN (12:00)
[2021-06-01] MEDS ORDERED: SUGAMMADEX SODIUM 200 MG/2 ML VIAL. IVP ONE (12:45)
[2021-06-01] MEDS: IV RINGERS,LACTATED 1000ML 1,000 ML IV SCH ×2 (13:00→22:37)
[2021-06-01] MEDS ORDERED: 0.9 % SODIUM CHLORIDE 10 ML DISP.SYRIN. IV PRN (13:00)
[2021-06-01] MEDS ORDERED: MORPHINE SULFATE 2 MG/ML INJ. IV PRN (13:00)
[2021-06-01] MEDS ORDERED: NALOXONE 0.4 MG/ML VIAL. IV PRN (13:00)
--- NOTE | 2021-06-01 13:20 | NUR ---
Pt returned from sx. 3 lap sites to [facility]. Some red shadowing noted. Pt says he feels ok. Pt asked when he could eat and I told him that he needed to start with a liquid to make sure his stomach was ok to eat. He said ok. Ice chips were offered.
[2021-06-01] MEDS: VALPROIC ACID (AS SODIUM SALT) 500 MG in IV DEXTROSE 5% 50 ML IV SCH ×2 (14:10→20:57)
[2021-06-01] MEDS: fentaNYL PF VIAL 100 MCG/2 ML VIAL IVP PRN (15:19)
[2021-06-01 19:00] VITALS: BP 116/73
--- NOTE | 2021-06-01 20:36 | PDOC4 ---
OPERATIVE NOTE Date: Date: Jun 01, 2021 Pre-Op Diagnosis: Appendicitis Post-Op Diagnosis: same Procedure Performed: Laparoscopic appendectomy Surgeon: Bill Wilcox Anesthesia Type: GETA plus local Blood Loss: 50 Specimans Obtained: appendix Findings: inflammation of appendix with adherence to terminal ileum, adhesions to midline, no other pathology noted Complications: none Operative Note: After obtaining informed consent, patient was taken to OR, induced under GETA and prepped in the usual fashion. 5 mm ports placed in LLQ and suprapubic, 12 port placed RUQ, all under laparoscopic guidance. Abdominal cavity was explored and noted as above. Appendix was grasped. It was sharply dissected off terminal ileum. Defect was created in mesoappendix. General load ASHLEY taken across base of appendix at level of cecum. Vascular load taken across mesoappendix. Clips were placed on stapled line for additional hemostasis. Appendix was placed in bag, delivered and sent to pathology. Copious irrigation. No evidence of bleeding or other pathology. Ports removed without bleeding. Fascia repaired with 0 vicryl. Skin repaired with 4 0 monocryl. Dressing placed. Patient tolerated procedure well and sent to PACU in stable condition. All co unts correct. Wound class 3. CHIO WILCOX MD Jun 01, 2021 20:36
[2021-06-01] MEDS: HYDROcodone/APAP 5/325MG 1 TAB TABLET PO PRN (20:56)
[2021-06-01 23:10] VITALS: BP 133/73
[2021-06-02] MEDS: NICOTINE 21MG PATCH. TD PRN (01:05)
[2021-06-02] MEDS: HYDROcodone/APAP 5/325MG 1 TAB TABLET PO PRN ×3 (01:05→19:26)
[2021-06-02 03:12] VITALS: BP 131/63
[2021-06-02] MEDS: PIPERACILLIN/TAZOBACTAM 3.375 GM in IV NORMAL SALINE 50ML 50 ML IV SCH ×4 (05:22→23:38)
[2021-06-02 07:00] VITALS: BP 132/75
--- NOTE | 2021-06-02 07:29 | NUR ---
Pt has been eating regular food. He did not ADAT after his surgery. This nurse had educated him yesterday in regards to starting with ice chips first. He had ordered a regular meal and has been eating a regular diet. This AM when this nurse went into his room he had emesis on the floor and sheets Saying "I got sick." This nurse again told him that he does not need to have regular food and that he had called dietary asking for an omelette. I told him that he can ice chips this morning and then we will go from there to a CLD after we see how his stomach handles the ice chips. He is aware.
[2021-06-02 07:45] LABS: BASO % 0 % (0-3); EOS % 0 % (0-3); HEMATOCRIT 35.2 % (39.0-53.0); LYMPH % 10 % (24-48); MEAN CORPUSCULAR HEMOGLOBIN 30 pg (25-35); MEAN CORPUSCULAR HGB CONC 34 g/dL (31-37); MEAN CORPUSCULAR VOLUME 88 fL (79-100); MONO # 0.3 x10^3/uL (0.0-1.1); MONO % 3 % (0-9); NEUT % 88 % (31-73); PLATELET COUNT 163 x10^3/uL (140-400); RED BLOOD COUNT 4.02 x10^6/uL (4.30-5.70); RED CELL DISTRIBUTION WIDTH 13.6 % (11.5-14.5); WHITE BLOOD COUNT 10.3 x10^3/uL (4.0-11.0)
[2021-06-02 07:58] LABS: CALCIUM 8.5 mg/dL (8.5-10.1); CREATININE 0.7 mg/dL (0.7-1.3); GFR 120.4; POTASSIUM 3.7 mmol/L (3.5-5.1)
[2021-06-02] MEDS: IV RINGERS,LACTATED 1000ML 1,000 ML IV SCH ×2 (09:00→19:26)
[2021-06-02] MEDS: fentaNYL PF VIAL 100 MCG/2 ML VIAL IVP PRN (10:30)
--- NOTE | 2021-06-02 10:36 | NUR ---
Pt cont to have emesis. He is currently NPO. Zofran was given but not helpful. Order for Compazine 10mg IV Q6H PRN.
--- NOTE | 2021-06-02 10:44 | PDOC ---
[facility] PROGRESS NOTE Date of Service DOS: DATE: 06/02/21 TIME: 10:36 Chief Complaint Chief Complaint Acute appendicitis Hypokalemia Normocytic anemia History epilepsy History schizophrenia Plan: Consultation placed to general surgery Continue IV Zosyn IV pain medication and antiemetics Will keep patient n.p.o. for anticipated surgical intervention FEN - NPO PPX - Heparin FULL CODE Dispo - inpatient for above History of Present Illness History of Present Illness Patient is a 50-year-old male with past medical history epilepsy, schizophrenia, TBI, learning disability, bipolar disorder, who presents to the ED with complaints of 4 episodes of watery brown diarrhea just prior to arrival in the ED. He reports associated abdominal pain. He arrived via EMS with closing so in stool. Denies any history of recent antibiotic use or hospitalization. He has not been vaccinated against COVID-19 and denies any known exposure. Labs on admission showed WBC 5.6, hemoglobin 11.9, hematocrit 34.2, potassium 3.4. CT abdomen chest pelvis showed acute appendicitis and small hiatal hernia. He received IV fluids was initiated on broad-spectrum antibiotics in the ED. Will admit patient for further medical management. 06/02/2021: Patient seen and evaluated. POD #1, s/p laparoscopic appendectomy. Having some nausea and vomiting this morning. Provided additional Compazine as needed. Vitals/I&O Vitals/I&O: Vital Signs Date Time Temp Pulse Resp B/P (MAP) Pulse Ox O2 Delivery O2 Flow Rate FiO2 06/02/21 07:00 97.7 73 18 132/75 (94) 94 Nasal Cannula 2.0 97.7 I & O 06/01/21 06/01/21 06/02/21 15:00 23:00 07:00 Intake Total 1050 ml 390 ml 290 ml Output Total 100 ml 825 ml 850 ml Balance 950 ml -435 ml -560 ml Physical Exam General: Alert, Cooperative, mild distress Heart: Regular rate Lungs: Clear Abdomen: Soft, Other (Postop incisions without significant erythema. Well healed large midline incision.) Extremities: No clubbing, No cyanosis Skin: No rashes, No breakdown Labs Labs: Laboratory Tests Test 06/01/21 11:15 06/02/21 06:20 SARS-CoV-2 RNA (SUMMER) Negative (Negative) White Blood Count 10.3 x10^3/uL (4.0-11.0) Red Blood Count 4.02 x10^6/uL (4.30-5.70) Hemoglobin 12.0 g/dL (13.0-17.5) Hematocrit 35.2 % (39.0-53.0) Mean Corpuscular Volume 88 fL (79-100) Mean Corpuscular Hemoglobin 30 pg (25-35) Mean Corpuscular Hemoglobin Concent 34 g/dL (31-37) Red Cell Distribution Width 13.6 % (11.5-14.5) Platelet Count 163 x10^3/uL (140-400) Neutrophils (%) (Auto) 88 % (31-73) Lymphocytes (%) (Auto) 10 % (24-48) Monocytes (%) (Auto) 3 % (0-9) Eosinophils (%) (Auto) 0 % (0-3) Basophils (%) (Auto) 0 % (0-3) Neutrophils # (Auto) 9.0 x10^3/uL (1.8-7.7) Lymphocytes # (Auto) 1.0 x10^3/uL (1.0-4.8) Monocytes # (Auto) 0.3 x10^3/uL (0.0-1.1) Eosinophils # (Auto) 0.0 x10^3/uL (0.0-0.7) Basophils # (Auto) 0.0 x10^3/uL (0.0-0.2) Sodium Level 142 mmol/L (136-145) Potassium Level 3.7 mmol/L (3.5-5.1) Chloride Level 106 mmol/L (98-107) Carbon Dioxide Level 27 mmol/L (21-32) Anion Gap 9 (6-14) Blood Urea Nitrogen 8 mg/dL (8-26) Creatinine 0.7 mg/dL (0.7-1.3) Estimated GFR (Cockcroft-Gault) 120.4 Glucose Level 104 mg/dL (70-99) Calcium Level 8.5 mg/dL (8.5-10.1) Assessment and Plan Assessmemt and Plan Problems Medical Problems: (1) Acute appendicitis Status: Acute (2) Diarrhea Status: Acute Comment Review of Relevant I have reviewed the following items garcia (where applicable) has been applied. Medications: Current Medications Medications (Trade) Dose Ordered Sig/Farideh Route PRN Reason Start Time Stop Time Status Last Admin Dose Admin Fentanyl Citrate (Fentanyl 2ml Vial) 25 mcg PRN Q5MIN PRN IVP MILD PAIN 1-3 06/01/21 12:00 06/01/21 22:00 DC 06/01/21 13:45 Ringer's Solution 1,000 ml @ 30 mls/hr Q24H IV 06/01/21 12:00 06/01/21 23:59 DC 06/01/21 12:00 Valproic Acid 500 mg/Dextrose 55 ml @ 55 mls/hr Q12HR IV 06/01/21 12:30 06/01/21 21:59 DC 06/01/21 20:57 Ringer's Solution 1,000 ml @ 100 mls/hr Q10H IV 06/01/21 13:00 06/02/21 09:00 Acetaminophen/ Hydrocodone Bitart (Lortab 5/325) 1 tab PRN Q4HRS PRN PO MILD PAIN 1-3 06/01/21 13:00 06/02/21 05:22 Sodium Chloride 1,000 ml @ 25 mls/hr Q24H IV 06/01/21 13:00 06/01/21 13:00 Justifications for Admission Other Justification PEGGY STEPHEN MD Jun 02, 2021 10:44
[2021-06-02] MEDS ORDERED: MORPHINE SULFATE 4 MG/ML INJ. IV PRN (10:45)
[2021-06-02] MEDS: PROCHLORPERAZINE 10 MG/2 ML VIAL. IV PRN ×2 (10:48→21:26)
[2021-06-02 11:17] VITALS: BP 128/71
[2021-06-02] MEDS: IV NORMAL SALINE 1000ML BAG 1,000 ML IV SCH (13:00)
[2021-06-02 15:00] VITALS: BP 121/76
--- NOTE | 2021-06-02 16:59 | PDOC ---
SURGICAL PROGRESS NOTE DATE: 06/02/21 TIME: 16:58 Subjective Pt with c/o N/V earlier, but improved now Vital Signs Vital Signs Date Time Temp Pulse Resp B/P (MAP) Pulse Ox O2 Delivery O2 Flow Rate FiO2 06/02/21 15:46 Room Air 06/02/21 15:00 97.4 89 18 121/76 (91) 96 2.0 97.4 I&O Intake and Output 06/02/21 07:00 Intake Total 1730 ml Output Total 1775 ml Balance -45 ml Intake Oral 480 ml IV Total 1250 ml Output Urine Total 1725 ml Estimated Blood Loss 50 ml # Voids 1 General: Alert, Cooperative, No acute distress Abdomen: Soft, No tenderness Labs Laboratory Tests Test 05/31/21 20:05 05/31/21 20:24 06/01/21 09:25 06/01/21 11:15 White Blood Count 5.6 x10^3/uL (4.0-11.0) Red Blood Count 3.97 x10^6/uL (4.30-5.70) Hemoglobin 11.9 g/dL (13.0-17.5) Hematocrit 34.2 % (39.0-53.0) Mean Corpuscular Volume 86 fL (79-100) Mean Corpuscular Hemoglobin 30 pg (25-35) Mean Corpuscular Hemoglobin Concent 35 g/dL (31-37) Red Cell Distribution Width 13.6 % (11.5-14.5) Platelet Count 180 x10^3/uL (140-400) Neutrophils (%) (Auto) 57 % (31-73) Lymphocytes (%) (Auto) 30 % (24-48) Monocytes (%) (Auto) 11 % (0-9) Eosinophils (%) (Auto) 2 % (0-3) Basophils (%) (Auto) 1 % (0-3) Neutrophils # (Auto) 3.2 x10^3/uL (1.8-7.7) Lymphocytes # (Auto) 1.7 x10^3/uL (1.0-4.8) Monocytes # (Auto) 0.6 x10^3/uL (0.0-1.1) Eosinophils # (Auto) 0.1 x10^3/uL (0.0-0.7) Basophils # (Auto) 0.0 x10^3/uL (0.0-0.2) Sodium Level 138 mmol/L (136-145) Potassium Level 3.4 mmol/L (3.5-5.1) Chloride Level 101 mmol/L (98-107) Carbon Dioxide Level 27 mmol/L (21-32) Anion Gap 10 (6-14) Blood Urea Nitrogen 7 mg/dL (8-26) Creatinine 0.8 mg/dL (0.7-1.3) Estimated GFR (Cockcroft-Gault) 103.2 BUN/Creatinine Ratio 9 (6-20) Glucose Level 83 mg/dL (70-99) Calcium Level 8.6 mg/dL (8.5-10.1) Magnesium Level 1.9 mg/dL (1.8-2.4) Total Bilirubin 0.2 mg/dL (0.2-1.0) Aspartate Amino Transf (AST/SGOT) 16 U/L (15-37) Alanine Aminotransferase (ALT/SGPT) 19 U/L (16-63) Alkaline Phosphatase 56 U/L (46-116) Lactate Dehydrogenase 154 U/L (85-227) Creatine Kinase 96 U/L (39-308) Total Protein 6.9 g/dL (6.4-8.2) Albumin 3.6 g/dL (3.4-5.0) Albumin/Globulin Ratio 1.1 (1.0-1.7) Ethyl Alcohol Level < 10 mg/dL (0-10) Urine Opiates Screen Neg (NEG) Urine Methadone Screen Neg (NEG) Urine Barbiturates Neg (NEG) Urine Phencyclidine Screen Neg (NEG) Urine Amphetamine/Methamphetamine Neg (NEG) Urine Benzodiazepines Screen Neg (NEG) Urine Cocaine Screen Neg (NEG) Urine Cannabinoids Screen Neg (NEG) Urine Ethyl Alcohol Neg (NEG) SARS-CoV-2 Antigen (Rapid) Negative (NEGATIVE) SARS-CoV-2 RNA (SUMMER) Negative (Negative) Test 06/02/21 06:20 White Blood Count 10.3 x10^3/uL (4.0-11.0) Red Blood Count 4.02 x10^6/uL (4.30-5.70) Hemoglobin 12.0 g/dL (13.0-17.5) Hematocrit 35.2 % (39.0-53.0) Mean Corpuscular Volume 88 fL (79-100) Mean Corpuscular Hemoglobin 30 pg (25-35) Mean Corpuscular Hemoglobin Concent 34 g/dL (31-37) Red Cell Distribution Width 13.6 % (11.5-14.5) Platelet Count 163 x10^3/uL (140-400) Neutrophils (%) (Auto) 88 % (31-73) Lymphocytes (%) (Auto) 10 % (24-48) Monocytes (%) (Auto) 3 % (0-9) Eosinophils (%) (Auto) 0 % (0-3) Basophils (%) (Auto) 0 % (0-3) Neutrophils # (Auto) 9.0 x10^3/uL (1.8-7.7) Lymphocytes # (Auto) 1.0 x10^3/uL (1.0-4.8) Monocytes # (Auto) 0.3 x10^3/uL (0.0-1.1) Eosinophils # (Auto) 0.0 x10^3/uL (0.0-0.7) Basophils # (Auto) 0.0 x10^3/uL (0.0-0.2) Sodium Level 142 mmol/L (136-145) Potassium Level 3.7 mmol/L (3.5-5.1) Chloride Level 106 mmol/L (98-107) Carbon Dioxide Level 27 mmol/L (21-32) Anion Gap 9 (6-14) Blood Urea Nitrogen 8 mg/dL (8-26) Creatinine 0.7 mg/dL (0.7-1.3) Estimated GFR (Cockcroft-Gault) 120.4 Glucose Level 104 mg/dL (70-99) Calcium Level 8.5 mg/dL (8.5-10.1) Laboratory Tests Test 06/02/21 06:20 White Blood Count 10.3 x10^3/uL (4.0-11.0) Red Blood Count 4.02 x10^6/uL (4.30-5.70) Hemoglobin 12.0 g/dL (13.0-17.5) Hematocrit 35.2 % (39.0-53.0) Mean Corpuscular Volume 88 fL (79-100) Mean Corpuscular Hemoglobin 30 pg (25-35) Mean Corpuscular Hemoglobin Concent 34 g/dL (31-37) Red Cell Distribution Width 13.6 % (11.5-14.5) Platelet Count 163 x10^3/uL (140-400) Neutrophils (%) (Auto) 88 % (31-73) Lymphocytes (%) (Auto) 10 % (24-48) Monocytes (%) (Auto) 3 % (0-9) Eosinophils (%) (Auto) 0 % (0-3) Basophils (%) (Auto) 0 % (0-3) Neutrophils # (Auto) 9.0 x10^3/uL (1.8-7.7) Lymphocytes # (Auto) 1.0 x10^3/uL (1.0-4.8) Monocytes # (Auto) 0.3 x10^3/uL (0.0-1.1) Eosinophils # (Auto) 0.0 x10^3/uL (0.0-0.7) Basophils # (Auto) 0.0 x10^3/uL (0.0-0.2) Sodium Level 142 mmol/L (136-145) Potassium Level 3.7 mmol/L (3.5-5.1) Chloride Level 106 mmol/L (98-107) Carbon Dioxide Level 27 mmol/L (21-32) Anion Gap 9 (6-14) Blood Urea Nitrogen 8 mg/dL (8-26) Creatinine 0.7 mg/dL (0.7-1.3) Estimated GFR (Cockcroft-Gault) 120.4 Glucose Level 104 mg/dL (70-99) Calcium Level 8.5 mg/dL (8.5-10.1) Problem List Problems Medical Problems: (1) Acute appendicitis Status: Acute (2) Diarrhea Status: Acute Assessment/Plan s/p lap appendectomy ADAT slowly Justicifation of Admission Dx: Justifications for Admission: Justification of Admission Dx: N/A CHOI WILCOX MD Jun 02, 2021 16:59
[2021-06-02 19:00] VITALS: BP 130/80
[2021-06-02] MEDS: HEPARIN for SUB-Q USE 5,000 UNIT/ML VIAL. SQ SCH (20:40)
[2021-06-02 22:51] VITALS: BP 150/76
[2021-06-03 03:24] VITALS: BP 136/74
[2021-06-03] MEDS: PROCHLORPERAZINE 10 MG/2 ML VIAL. IV PRN ×2 (03:50→12:56)
[2021-06-03] MEDS: NICOTINE 21MG PATCH. TD PRN (04:12)
[2021-06-03] MEDS: IV RINGERS,LACTATED 1000ML 1,000 ML IV SCH ×2 (04:46→15:00)
[2021-06-03] MEDS: HYDROcodone/APAP 5/325MG 1 TAB TABLET PO PRN (04:46)
[2021-06-03] MEDS: PIPERACILLIN/TAZOBACTAM 3.375 GM in IV NORMAL SALINE 50ML 50 ML IV SCH ×3 (05:19→17:35)
[2021-06-03 07:40] VITALS: BP 145/81
[2021-06-03] MEDS: HEPARIN for SUB-Q USE 5,000 UNIT/ML VIAL. SQ SCH ×2 (08:40→21:33)
--- NOTE | 2021-06-03 09:15 | PDOC ---
SURGICAL PROGRESS NOTE DATE: 06/03/21 TIME: 09:14 Subjective emesis this AM + stool Vital Signs Vital Signs Date Time Temp Pulse Resp B/P (MAP) Pulse Ox O2 Delivery O2 Flow Rate FiO2 06/03/21 07:40 97.6 60 18 145/81 (102) 95 Room Air 97.6 06/02/21 15:00 2.0 I&O Intake and Output 06/03/21 07:00 Intake Total 320 ml Output Total 2450 ml Balance -2130 ml Intake Oral 320 ml Output Urine Total 1900 ml Emesis 550 ml # Voids 2 # Bowel Movements 1 General: Alert, Cooperative Abdomen: Soft, No tenderness Labs Laboratory Tests Test 06/01/21 09:25 06/01/21 11:15 06/02/21 06:20 06/02/21 20:37 SARS-CoV-2 Antigen (Rapid) Negative (NEGATIVE) SARS-CoV-2 RNA (SUMMER) Negative (Negative) White Blood Count 10.3 x10^3/uL (4.0-11.0) Red Blood Count 4.02 x10^6/uL (4.30-5.70) Hemoglobin 12.0 g/dL (13.0-17.5) Hematocrit 35.2 % (39.0-53.0) Mean Corpuscular Volume 88 fL (79-100) Mean Corpuscular Hemoglobin 30 pg (25-35) Mean Corpuscular Hemoglobin Concent 34 g/dL (31-37) Red Cell Distribution Width 13.6 % (11.5-14.5) Platelet Count 163 x10^3/uL (140-400) Neutrophils (%) (Auto) 88 % (31-73) Lymphocytes (%) (Auto) 10 % (24-48) Monocytes (%) (Auto) 3 % (0-9) Eosinophils (%) (Auto) 0 % (0-3) Basophils (%) (Auto) 0 % (0-3) Neutrophils # (Auto) 9.0 x10^3/uL (1.8-7.7) Lymphocytes # (Auto) 1.0 x10^3/uL (1.0-4.8) Monocytes # (Auto) 0.3 x10^3/uL (0.0-1.1) Eosinophils # (Auto) 0.0 x10^3/uL (0.0-0.7) Basophils # (Auto) 0.0 x10^3/uL (0.0-0.2) Sodium Level 142 mmol/L (136-145) Potassium Level 3.7 mmol/L (3.5-5.1) Chloride Level 106 mmol/L (98-107) Carbon Dioxide Level 27 mmol/L (21-32) Anion Gap 9 (6-14) Blood Urea Nitrogen 8 mg/dL (8-26) Creatinine 0.7 mg/dL (0.7-1.3) Estimated GFR (Cockcroft-Gault) 120.4 Glucose Level 104 mg/dL (70-99) Calcium Level 8.5 mg/dL (8.5-10.1) Glucose (Fingerstick) 125 mg/dL (70-99) Laboratory Tests Test 06/02/21 20:37 Glucose (Fingerstick) 125 mg/dL (70-99) Problem List Problems Medical Problems: (1) Acute appendicitis Status: Acute (2) Diarrhea Status: Acute Assessment/Plan will check xr, NPO if distended will place NG Justicifation of Admission Dx: Justifications for Admission: Justification of Admission Dx: N/A PETER CARPIO APRN Jun 03, 2021 09:15
--- NOTE | 2021-06-03 09:24 | PDOC ---
[facility] PROGRESS NOTE Date of Service DOS: DATE: 06/03/21 TIME: 09:22 Chief Complaint Chief Complaint Acute appendicitis Hypokalemia Normocytic anemia History epilepsy History schizophrenia Plan: Consultation placed to general surgery Continue IV Zosyn IV pain medication and antiemetics Will keep patient n.p.o. for anticipated surgical intervention FEN - NPO PPX - Heparin FULL CODE Dispo - inpatient for above History of Present Illness History of Present Illness Patient is a 50-year-old male with past medical history epilepsy, schizophrenia, TBI, learning disability, bipolar disorder, who presents to the ED with complaints of 4 episodes of watery brown diarrhea just prior to arrival in the ED. He reports associated abdominal pain. He arrived via EMS with closing so in stool. Denies any history of recent antibiotic use or hospitalization. He has not been vaccinated against COVID-19 and denies any known exposure. Labs on admission showed WBC 5.6, hemoglobin 11.9, hematocrit 34.2, potassium 3.4. CT abdomen chest pelvis showed acute appendicitis and small hiatal hernia. He received IV fluids was initiated on broad-spectrum antibiotics in the ED. Will admit patient for further medical management. 06/02/2021: Patient seen and evaluated. POD #1, s/p laparoscopic appendectomy. Having some nausea and vomiting this morning. Provided additional Compazine as needed. 06/03/2021: POD #2 s/p laparoscopic appendectomy. Reports nausea and vomiting x1 today. Reportedly noncompliant with n.p.o. diet. Acute abdominal series showed nonobstructive bowel gas pattern. Continue as needed antiemetics. Will monitor for symptomatic improvement and possible discharge later today or tomorrow. Vitals/I&O Vitals/I&O: Vital Signs Date Time Temp Pulse Resp B/P (MAP) Pulse Ox O2 Delivery O2 Flow Rate FiO2 06/03/21 07:40 97.6 60 18 145/81 (102) 95 Room Air 97.6 06/02/21 15:00 2.0 I & O 06/02/21 06/02/21 06/03/21 15:00 23:00 07:00 Intake Total 0 ml 220 ml 100 ml Output Total 400 ml 650 ml 1400 ml Balance -400 ml -430 ml -1300 ml Physical Exam General: Alert, Cooperative Heart: Regular rate Lungs: Clear Abdomen: Soft, Other (Incisional status) Extremities: No clubbing, No cyanosis Skin: No rashes, No breakdown Labs Labs: Laboratory Tests Test 06/02/21 20:37 Glucose (Fingerstick) 125 mg/dL (70-99) Assessment and Plan Assessmemt and Plan Problems Medical Problems: (1) Acute appendicitis Status: Acute (2) Diarrhea Status: Acute Comment Review of Relevant I have reviewed the following items garcia (where applicable) has been applied. Medications: Current Medications Medications (Trade) Dose Ordered Sig/Farideh Route PRN Reason Start Time Stop Time Status Last Admin Dose Admin Prochlorperazine Edisylate (Compazine) 10 mg PRN Q6HRS PRN IV NAUSEA/VOMITING- 2ND CHOICE 06/02/21 10:45 06/03/21 03:50 Morphine Sulfate (Morphine Sulfate) 4 mg PRN Q2HR PRN IV moderate pain 06/02/21 10:45 06/02/21 15:46 Heparin Sodium (Porcine) (Heparin Sodium) 5,000 unit Q12HR SQ 06/02/21 21:00 06/03/21 08:40 Justifications for Admission Other Justification PEGGY STEPHEN MD Jun 03, 2021 09:23
--- NOTE | 2021-06-03 10:01 | RAD ---
EXAM: Abdomen series. HISTORY: Emesis. COMPARISON: CT dated 05/31/2021. FINDINGS: A frontal view of the chest and frontal upright and supine views of the abdomen are obtaine d. There is no infiltrate, pleural effusion or pneumothorax. The heart is normal in size. There are s urgical clips and a surgical anastomosis overlying the right lower quadrant due to appendectomy. Ther e is a nonobstructive bowel gas pattern. There is no free air. There is degenerative change at the allyn mbosacral junction. There is also degenerative change involving both hips and findings suggesting a c omponent of chronic hip impingement. IMPRESSION: 1. No acute pelvic finding. 2. Nonobstructive bowel gas pattern. Electronically signed by: Leola Webster MD (06/03/2021 9:59 AM) [id number]
[2021-06-03 11:02] VITALS: BP 153/84
[2021-06-03] MEDS ORDERED: HYDR-2761 PO (12:01)
[2021-06-03] MEDS: IV NORMAL SALINE 1000ML BAG 1,000 ML IV SCH (12:44)
[2021-06-03 15:02] VITALS: BP 165/93
--- NOTE | 2021-06-03 18:06 | PATHOLOGY ---
[facility] Accession Number: [id number] . 01 Material submitted: . appendix - APPENDIX . 01 Clinical history: . ACUTE APPENDICITIS LAPAROSCOPIC APPENDECTOMY . 02 Diagnosis: Appendix, laparoscopic appendectomy: - Acute and chronic appendicitis of distal appendiceal tip. (JOHNM:kiersten; 06/03/2021) MBR 06/03/2021 1603 Local . 02 Comment: There is no evidence of rupture. (JOHNM:kiersten; 06/03/2021) . 02 Electronically signed: . Agustín Ellis MD, Pathologist NPI- [id number] . 01 Gross description: . Fixative: Formalin Labeled: Appendix Appendix length: 7.7 cm Appendix diameter: 1.0 cm Mesoappendix: 1.5 cm Proximal margin: Stapled Serosa: [place]-randolph and roughened Cut surface: Focally dilated Luminal diameter: Up to 0.7 cm Perforation: Not identified Lesions/abnormalities: None identified . Proximal margin and bisected tip in cassette A1. Additional scheduling representative cross-sections in cassette A2. ([facility]; 06/02/2021) NRI/NRI 06/03/2021 1602 Local . 02 Pathologist provided ICD-10: K35.80 . 02 CPT . 412544 Specimen Comment: A courtesy copy of this report has been sent to [phone], [phone] Specimen Comment: [id number] Specimen Comment: Report sent to / DR ELMORE Performed at: 01 [facility] [address], [place], [place] [id number] MD Shyam Salguero MD Phone: [phone] Performed at: 02 [facility] [address] [place], [place] [id number] MD Agustín Ellis MD Phone: [phone]
[2021-06-03 19:00] VITALS: BP 136/87
[2021-06-03 23:00] VITALS: BP 137/77
[2021-06-04] MEDS: IV RINGERS,LACTATED 1000ML 1,000 ML IV SCH ×2 (02:07→09:27)
[2021-06-04] MEDS: NICOTINE 21MG PATCH. TD PRN (05:57)
[2021-06-04] MEDS: PIPERACILLIN/TAZOBACTAM 3.375 GM in IV NORMAL SALINE 50ML 50 ML IV SCH ×3 (05:59→11:12)
[2021-06-04 07:00] VITALS: BP 159/89
[2021-06-04] MEDS: HEPARIN for SUB-Q USE 5,000 UNIT/ML VIAL. SQ SCH (09:30)
--- NOTE | 2021-06-04 10:10 | PDOC ---
SURGICAL PROGRESS NOTE DATE: 06/04/21 TIME: 10:09 Subjective much better no vomiting tolerating diet Vital Signs Vital Signs Date Time Temp Pulse Resp B/P (MAP) Pulse Ox O2 Delivery O2 Flow Rate FiO2 06/04/21 08:00 Room Air 06/04/21 07:00 97.6 55 18 159/89 (112) 95 97.6 06/03/21 08:00 2.0 I&O Intake and Output 06/04/21 07:00 Intake Total 3740 ml Output Total 1050 ml Balance 2690 ml Intake Oral 600 ml IV Total 1940 ml Other 1200 ml Output Urine Total 1050 ml # Voids 2 General: Alert, Oriented X3, Cooperative Abdomen: Soft, No tenderness Labs Laboratory Tests Test 06/02/21 20:37 Glucose (Fingerstick) 125 mg/dL (70-99) Problem List Problems Medical Problems: (1) Acute appendicitis Status: Acute (2) Diarrhea Status: Acute Assessment/Plan improved stable surgically dc per primary Justicifation of Admission Dx: Justifications for Admission: Justification of Admission Dx: N/A PETER CARPIO FEATURES EDITOR Jun 04, 2021 10:10
[2021-06-04] MEDS: IV NORMAL SALINE 1000ML BAG 1,000 ML IV SCH (10:46)
[2021-06-04 11:26] VITALS: BP 144/91
--- NOTE | 2021-06-04 12:06 | PDOC ---
[facility] [facility] PROGRESS NOTE Date of Service DOS: DATE: 06/04/21 TIME: 12:05 Chief Complaint Chief Complaint Acute appendicitis Hypokalemia Normocytic anemia History epilepsy History schizophrenia Plan: Consultation placed to general surgery Continue IV Zosyn IV pain medication and antiemetics Will keep patient n.p.o. for anticipated surgical intervention FEN - NPO PPX - Heparin FULL CODE Dispo - inpatient for above History of Present Illness History of Present Illness Patient is a 50-year-old male with past medical history epilepsy, schizophrenia, TBI, learning disability, bipolar disorder, who presents to the ED with complaints of 4 episodes of watery brown diarrhea just prior to arrival in the ED. He reports associated abdominal pain. He arrived via EMS with closing so in stool. Denies any history of recent antibiotic use or hospitalization. He has not been vaccinated against COVID-19 and denies any known exposure. Labs on admission showed WBC 5.6, hemoglobin 11.9, hematocrit 34.2, potassium 3.4. CT abdomen chest pelvis showed acute appendicitis and small hiatal hernia. He received IV fluids was initiated on broad-spectrum antibiotics in the ED. Will admit patient for further medical management. 06/02/2021: Patient seen and evaluated. POD #1, s/p laparoscopic appendectomy. Having some nausea and vomiting this morning. Provided additional Compazine as needed. 06/03/2021: POD #2 s/p laparoscopic appendectomy. Reports nausea and vomiting x1 today. Reportedly noncompliant with n.p.o. diet. Acute abdominal series showed nonobstructive bowel gas pattern. Continue as needed antiemetics. Will monitor for symptomatic improvement and possible discharge later today or tomorrow. 06/04/2021: POD #3 s/p laparoscopic appendectomy. Nausea and vomiting resolved. Will discharge home today. Greater than 30 minutes spent managing the discharge of this patient. Vitals/I&O Vitals/I&O: Vital Signs Date Time Temp Pulse Resp B/P (MAP) Pulse Ox O2 Delivery O2 Flow Rate FiO2 06/04/21 11:26 97.9 55 18 144/91 (108) 95 Room Air 97.9 06/03/21 08:00 2.0 I & O 06/03/21 06/03/21 06/04/21 15:00 23:00 07:00 Intake Total 50 ml 810 ml 2880 ml Output Total 200 ml 850 ml Balance 50 ml 610 ml 2030 ml Physical Exam General: Alert, Oriented X3, Cooperative, No acute distress Heart: Regular rate Lungs: Clear Abdomen: Soft, No tenderness Extremities: No clubbing, No cyanosis Skin: No rashes, No breakdown Assessment and Plan Assessmemt and Plan Problems Medical Problems: (1) Acute appendicitis Status: Acute (2) Diarrhea Status: Acute Comment Review of Relevant I have reviewed the following items garcia (where applicable) has been applied. Justifications for Admission Other Justification PEGGY STEPHEN MD Jun 04, 2021 12:06
--- NOTE | 2021-06-04 12:08 | PDOC3 ---
Discharge Summary Visit Information Date of Admission: Jun 01, 2021 Date of Discharge: Jun 04, 2021 Final Diagnosis Problems Medical Problems: (1) Acute appendicitis Status: Acute (2) Diarrhea Status: Acute Brief Hospital Course Allergies Allergies Coded Allergies Type Severity Reaction Last Updated Verified acetaminophen Allergy Intermediate rash 06/01/21 Yes codeine Allergy Intermediate rash 06/01/21 Yes methylphenidate Allergy Intermediate 06/01/21 Yes Vital Signs Vital Signs Date Time Temp Pulse Resp B/P (MAP) Pulse Ox O2 Delivery O2 Flow Rate FiO2 06/04/21 11:26 97.9 55 18 144/91 (108) 95 Room Air 97.9 06/03/21 08:00 2.0 Lab Results Laboratory Tests Test 06/02/21 20:37 Glucose (Fingerstick) 125 mg/dL (70-99) Brief Hospital Course Mr. Vizcarra is a 50 old male who presented with acute appendicitis. Consultation placed to general surgery. He had laparoscopic appendectomy. Further hospital course was prolonged due to postop nausea and vomiting. Once symptoms resolved and tolerated diet he was able to discharge home with self- care. Discharge Information Condition at Discharge: Improved Disposition/Orders: D/C to Home Scheduled Amlodipine Besylate (Amlodipine Besylate) 10 Mg Tablet, 10 MG PO DAILY for HTN, (Reported) Entered as Reported by: IZABELA CHU LPN on 06/01/211145 Last Action: New Order on 06/01/211145 by IZABELA CHU LPN Asenapine Maleate (Saphris) 5 Mg Tab.subl, 1 TAB SL QHS for mood, #30 (Reported) Entered as Reported by: IZABELA CHU LPN on 06/01/211145 Last Action: New Order on 06/01/211145 by IZABELA CHU LPN Atenolol (Atenolol) 100 Mg Tablet, 1 TAB PO DAILY for HTN, #30 Ref 5 (Reported) Entered as Reported by: IZABELA CHU LPN on 06/01/211145 Last Action: New Order on 06/01/211145 by IZABELA CHU LPN Benztropine Mesylate (Benztropine Mesylate) 1 Mg Tablet, 1 TAB PO BID for EPS, #60 (Reported) Entered as Reported by: IZABELA CHU LPN on 06/01/211145 Last Action: New Order on 06/01/211145 by IZABELA CHU LPN Cetirizine Hcl (Cetirizine Hcl) 10 Mg Tablet, 1 TAB PO DAILY for allergies, #30 Ref 5 (Reported) Entered as Reported by: IZABELA CHU LPN on 06/01/211145 Last Action: New Order on 06/01/211145 by IZABELA CHU LPN Diclofenac Sodium (Diclofenac Sodium) 150 Ml Drops, 15 CYNTHIA TP QID for pain for 30 Days, #150 Ref 0 (Reported) Entered as Reported by: IZABELA CHU LPN on 06/01/211145 Last Action: New Order on 06/01/211145 by IZABELA CHU LPN Divalproex Sodium (Depakote) 500 Mg Tablet.dr, 1,000 MG PO BID for seizure, (Reported) Entered as Reported by: JOSE RAMON SWAN RN on 06/01/213 Last Action: New Order on 06/01/213 by JOSE RAMON SWAN RN Divalproex Sodium (Divalproex Sodium Er) 500 Mg Tab.er.24h, 2 TAB PO QHS for mood/schizo, #60 Ref 1 (Reported) Entered as Reported by: IZABELA CHU LPN on 06/01/211145 Last Action: New Order on 06/01/211145 by IZABELA CHU LPN Fluphenazine Hcl (Fluphenazine Hcl) 5 Mg Tablet, 1 TAB PO BID for mood/schizo, #60 Ref 1 (Reported) Entered as Reported by: IZABELA CHU LPN on 06/01/211145 Last Action: New Order on 06/01/211145 by IZABELA CHU LPN Fluvoxamine Maleate (Fluvoxamine Maleate) 100 Mg Tablet, 1 TAB PO QHS for mood, #30 Ref 2 (Reported) Entered as Reported by: IZABELA CHU LPN on 06/01/211145 Last Action: New Order on 06/01/211145 by IZABELA CHU LPN Hydralazine Hcl (Hydralazine Hcl) 50 Mg Tablet, 1 TAB PO TID for HTN, #90 Ref 5 (Reported) Entered as Reported by: IZABELA CHU LPN on 06/01/211145 Last Action: New Order on 06/01/211145 by IZABELA CHU LPN Hydrochlorothiazide (Hydrochlorothiazide Tablet) 12.5 Mg Tablet, 12.5 MG PO DAILY for BP, Ref 0 (Reported) Entered as Reported by: IZABELA CHU LPN on 06/01/211145 Last Action: New Order on 06/01/211145 by IZABELA CHU LPN Ketoconazole (Ketoconazole) 15 Gm Cream..g., 1 CYNTHIA TP BID for seborrheic dermatitis, #30 (Reported) Entered as Reported by: IZABELA CHU LPN on 06/01/211145 Last Action: New Order on 06/01/211145 by IZABELA CHU LPN Losartan Potassium (Losartan Potassium) 100 Mg Tablet, 100 MG PO DAILY for HYPERTENSION, (Reported) Entered as Reported by: IZABELA CHU LPN on 06/01/211145 Last Action: New Order on 06/01/211145 by IZABELA CHU LPN Multivitamin (Multivitamins) 1 Each Tablet, 1 TAB PO DAILY for supplement, #90 Ref 3 (Reported) Entered as Reported by: IZABELA CHU LPN on 06/01/211145 Last Action: New Order on 06/01/211145 by IZABELA CHU LPN Nicotine Polacrilex (Nicotine Lozenge) 4 Mg Lozenge, 1 EACH PO Q1HR for smoking sensation for 20 Days, #480 Ref 0 (Reported) Entered as Reported by: IZABELA CHU LPN on 06/01/211145 Last Action: New Order on 06/01/211145 by IZABELA CHU LPN Ondansetron (Ondansetron Odt) 4 Mg Tab.rapdis, 1 TAB PO PRN Q6-8HRS for N/V, #16 (Reported) Entered as Reported by: IZABELA CHU LPN on 06/01/211145 Last Action: New Order on 06/01/211145 by IZABELA CHU LPN Oxybutynin Chloride (Oxybutynin Chloride) 5 Mg Tablet, 5 MG PO QHS for overactive bladder, (Reported) Entered as Reported by: IZABELA CHU LPN on 06/01/211145 Last Action: New Order on 06/01/211145 by IZABELA CHU LPN Pantoprazole Sodium (Pantoprazole Sodium ) 40 Mg Tablet.dr, 40 MG PO DAILYAC for GERD, (Reported) Entered as Reported by: IZABELA CHU LPN on 06/01/211145 Last Action: New Order on 06/01/211145 by IZABELA CHU LPN Polyethylene Glycol 3350 (Polyethylene Glycol 3350) 17 Gm Powd.pack, 17 GM PO BI D for constipation, (Reported) Entered as Reported by: IZABELA CHU LPN on 06/01/211145 Last Action: New Order on 06/01/211145 by IZABELA CHU LPN Sennosides/Docusate Sodium (Sennosides-Docusate Sodium Tab) 1 Each Tablet, 1 TAB PO BID for constipation for 30 Days, #60 Ref 0 (Reported) Entered as Reported by: IZABELA CHU LPN on 06/01/211145 Last Action: New Order on 06/01/211145 by IZABELA CHU LPN Simvastatin (Simvastatin) 20 Mg Tablet, 1 TAB PO QHS for hypercholestremia, #30 Ref 5 (Reported) Entered as Reported by: IZABELA CHU LPN on 06/01/211145 Last Action: New Order on 06/01/211145 by IZABELA CHU LPN Scheduled PRN Albuterol Sulfate (Proair Hfa) 8.5 Gm Hfa.aer.ad, 2 PUFF INH PRN Q6HRS PRN for SHORTNESS OF BREATH, (Reported) Entered as Reported by: IZABELA CHU LPN on 06/01/211145 Last Action: New Order on 06/01/211145 by IZABELA CHU LPN Hydrocodone Bit/Acetaminophen (Hydrocodone-Apap 5-325 ) 1 Tab Tablet, 1 TAB PO PRN Q6HRS PRN for PAIN for 7 Days, #28 Ref 0 Prescribed by: PEGGY STEPHEN MD on 06/03/21 1202 Loperamide Hcl (Anti-Diarrheal) 2 Mg Capsule, 2 MG PO PRN PRN for DIARRHEA, (Reported) Entered as Reported by: IZABELA CHU LPN on 10/26/21 1146 Last Action: New Order on 06/01/21 1146 by IZABELA CHU LPN Lorazepam (Ativan) 0.5 Mg Tablet, 0.5 MG PO TID PRN for ANXIETY, #10 Prescribed by: ROBER SCHWARTZ D.O. on 01/26/20 0046 Justicifation of Admission Dx: Justifications for Admission: Justification of Admission Dx: N/A PEGGY STEPHEN MD Jun 04, 2021 12:07
[2021-06-04] MEDS ORDERED: LOPE2TAB27 PO (12:09)
--- NOTE | 2021-06-04 12:45 | NUR ---
Discharge Note: RAJWINDER PEDERSON Discharge instructions and discharge home medications reviewed with Gas Regulator Repairer Lavern Krause and to patient and a copy given. All questions have been answered and understanding verbalized. The following instructions and handouts were given: information about diet, activity, follow up, medications, wound care. Discontinued lines and drains: IV line in left AC removed, catheter tip intact. Patient discharged to home with self care (alf) with patients dad, wheelchair used for mobility to discharge vehicle.
== END 2021-06-04 12:45 | disposition home or self-care (01) | DRG 343 ==
LOC: ER 19:18 → 4 NORTH 23:00
PROVIDERS: ADMIT Internal Medicine; ATTEND Internal Medicine
PROC: 0DTJ4ZZ Resection of Appendix, Percutaneous Endoscopic Approach (ICD-10-PCS; principal; 2021-06-01 12:00)
DX: K35.80 Unspecified acute appendicitis (principal); D64.9 Anemia, unspecified; E87.6 Hypokalemia; F17.210 Nicotine dependence, cigarettes, uncomplicated; F20.9 Schizophrenia, unspecified; F31.9 Bipolar disorder, unspecified; F41.9 Anxiety disorder, unspecified; G40.909 Epilepsy, unspecified, not intractable, without status epilepticus; I10 Essential (primary) hypertension; J44.9 Chronic obstructive pulmonary disease, unspecified; K21.9 Gastro-esophageal reflux disease without esophagitis; Z79.899 Other long term (current) drug therapy; Z91.19 Patient's noncompliance with other medical treatment and regimen; Z88.5 Allergy status to narcotic agent; Z88.8 Allergy status to other drugs, medicaments and biological substances; Z20.822 Contact with and (suspected) exposure to COVID-19
CPT/HCPCS: 36415; 74022; 74176; 74177; 80048; 80053; 80307; 82550; 82962; 83615; 83735; 85025; 87426; 88304; 96360; A4314; A4930; A6402; G0480; J0330; J0780; J1100; J1644; J2250; J2270; J2405; J2543; J2704; J2710; J3010; J3490; J7030; J7060; J7120; Q9967; U0003; U0005; 99285-25; G0378

== ENCOUNTER 2021-07-15 19:01 | Emergency (ER) | payer OTHER, MEDICAID ==
[~2021-07-15] VITALS: Ht 175.3 cm; Wt 78.2 kg
[~2021-07-15 19:01] MED LIST changes: +ALBU2.5V8 INH; +AMLO-187 PO; +ASEN5TAB7 SL; +ATEN100T PO; +BENZ1TAB5 PO; +CETI10TA16 PO; +DICL150D9 TP; +DIVA500T17 PO; +DIVA500T2 PO; +FLUP5TAB3 PO; +FLUV100T16 PO; +HYDR-2761 PO; +HYDR-2869 PO; +HYDR12.58 PO; +KETO15CR2 TP; +LOPE2CAP3 PO; +LOPE2TAB27 PO; +LOSA100T14 PO; +MULT-445 PO; +NICO4LOZ93 PO; +ONDA4TAB12 PO; +OXYB5TAB10 PO; +PANT40TA77 PO; +POLY17PO52 PO; +SENN1TAB37 PO; +SIMV20TA18 PO
[2021-07-15 21:41] VITALS: BP 110/72
[2021-07-16 00:47] LABS: BILIRUBIN,URINE NEGATIVE (NEG); CLARITY,URINE CLOUDY; COLOR,URINE YELLOW; NITRITE,URINE NEGATIVE (NEG); PH,URINE 7.5 (<5.0-8.0); PROTEIN,URINE NEGATIVE (NEG-TRACE)
--- NOTE | 2021-07-16 01:01 | PHYS DOC ---
Past Medical History Past Medical History: Asthma, COPD, Seizure Additional Past Medical Histor: TBI, Learning disability, epilepsy Past Surgical History: Appendectomy, Other Additional Past Surgical Histo: Unknown, pt. poor historian, abd sx Smoking Status: Never Smoker Alcohol Use: None Drug Use: None General Adult EDM: Chief Complaint: BACK PAIN OR INJURY HPI: HPI: 51-year-old male past medical history of bipolar disorder, schizophrenia, seizures, TBI, essential tremors and COPD, presents to the ED BIBEMS with comp laints of bilateral low back pain that started around 630 PM the patient fell on his back against a wall of his home. States he landed in a seated position on carpeted floor. Reports he is dizziness right before he fell-this lasted for less than 10 seconds, has no active dizziness. Was able to get up and ambulate but states he now has back pain. Primary care physician is Dr. Masters. Denies any prior back injury but does report a fall more than 10 feet where he sustained bilateral pneumothoraces and intestinal injury that required surgery 2/2 "haldol made me crazy." Pt denies any suicidal ideations or plans, hallucinations or confusion. Patient denies any alcohol or drug use. Did not hit his head or lose consciousness. Denies any history of IV drug use, history of cancer, history of sciatica, history of malignancy, history of immunocompromise state, neurologic complaints including saddle anesthesia, weakness or paresthesias, urinary retention, bowel or bladder incontinence, night pain, fever/chills/night sweats, unexplained weight loss, anticoagulants or coagulopathy, prolonged steroid use, or skin color changes/presence of con tusions or abrasions. Review of Systems: Review of Systems: Constitutional: Denies fever or chills. [] Eyes: Denies change in visual acuity. [] HENT: Denies nasal congestion or sore throat. [] Respiratory: Denies cough or shortness of breath. [] Cardiovascular: Denies chest pain or edema. [] GI: Denies abdominal pain, nausea, vomiting, bloody stools or diarrhea. [] : Denies saddle anesthesia or incontinence Musculoskeletal: Denies midline back pain or joint pain. [] Integument: Denies rash or diaphoresis Neurologic: Denies headache, neck pain, radiculopathy, focal weakness or sensory changes. [] Endocrine: Denies polyuria or polydipsia. [] Lymphatic: Denies swollen glands. [] Psychiatric: Denies depression or anxiety. [] Heart Score: C/O Chest Pain: No Risk Factors: Risk Factors: DM, Current or recent (<one month) smoker, HTN, HLP, family history of CAD, obesity. Risk Scores: Score 0 - 3: 2.5% MACE over next 6 weeks - Discharge Home Score 4 - 6: 20.3% MACE over next 6 weeks - Admit for Clinical Observation Score 7 - 10: 72.7% MACE over next 6 weeks - Early Invasive Strategies Allergies: Allergies: Allergies Coded Allergies Type Severity Reaction Last Updated Verified acetaminophen Allergy Intermediate rash 06/01/21 Yes codeine Allergy Intermediate rash 06/01/21 Yes methylphenidate Allergy Intermediate 06/01/21 Yes Physical Exam: PE: Constitutional: Well developed, well nourished, no acute distress, non-toxic appearance. HENT: Normocephalic, atraumatic, Eyes: PERRLA, EOMI, conjunctiva normal, no discharge. Neck: Normal range of motion, supple, Cardiovascular: S1/2 present, regular rhythm Lungs & Thorax: Speaking in full sentences, bilateral equal chest rise, no tachypnea or increased work of breathing Abdomen: soft, no tenderness, Skin: Warm, dry, no erythema, no rash. [] Back: No midline spinal step-offs or tenderness, reports bilateral lower paraspinal lumbar pain in the L4-L5 distribution and at the SI joints, is able to bear weight, has baseline tremors Extremities: No tenderness, no cyanosis, no lower extremity edema, 5 out of 5 equal lower extremity muscle strength Neurologic: Alert and oriented X 3, normal motor function, normal sensory function, no focal deficits noted. [] Psychologic: Affect normal, judgement normal, mood normal. [] Current Patient Data: Vital Signs: Vital Signs Date Time Temp Pulse Resp B/P (MAP) Pulse Ox O2 Delivery O2 Flow Rate FiO2 07/15/21 21:41 98.1 73 24 110/72 (85) 96 Room Air 98.1 EKG: EKG: [] Radiology/Procedures: Radiology/Procedures: [] Course & Med Decision Making: Course & Med Decision Making Pertinent Labs and Imaging studies reviewed. (See chart for details) Concern for blunt back injury with bilateral paraspinal lumbar tenderness, I suspect is more musculoskeletal nature. Patient with no neurologic deficits, saddle anesthesia or incontinence. Is equal lower extremity muscle strength and is able to ambulate. Recommend rice instructions and [id number] analgesia. Will discharge home with strict ED return precautions were given for severe pain, neurologic deficits, weakness or incontinence. Encouraged urgent outpatient follow-up with PMD and orthopedic surgery if symptoms presents. Life-threatening processes were considered but are low suspicion at this time, given history, physical exam and ED workup. Pt was educated on all prescription medications and adverse effects. All patient's questions were answered and pt was stable at time of discharge. Life/limb-threatening differential includes but is not limited to, aortic dissection/aneurysm, cauda equina syndrome, transverse myelitis, spinal cord/epidural compression syndromes, discitis, spinal stenosis, epidural abscess or hematoma, osteomyelitis, disc herniation, surgical abdomen, stable or unstable fracture, renal/ureteral colic, sepsis, meningitis, musculoskeletal injury, traumatic injury, intraabdominal/retroperitoneal or pelvic bleeding. I have spoken with the patient and/or caregivers. I explained the patient's condition, diagnoses and treatment plan based on the information available to me at this time. I have answered the patient and/or caregiver's questions and addressed any concerns. The patient and/or caregivers have a good understanding of patient's diagnosis, condition and treatment plan as can be expected at this point. Vital signs have been stable. Patient's condition is stable and appropriate for discharge from the emergency department. Patient will pursue further outpatient evaluation with primary care physician or other designated or consulting physician as outlined in the discharge instructions. The patient and/or caregivers are agreeable to this plan of care and follow-up instructions have been explained in detail. The patient and/or caregivers have received these instructions in written form and have expressed an understanding of the discharge instructions. The patient and/or caregivers are aware that any significant change of condition or worsening of symptoms should prompt immediate return to this or the closest emergency department or call to 911. Torie Disclaimer: Torie Disclaimer: This electronic medical record was generated, in whole or in part, using a voice recognition dictation system. Departure Departure Impression: Primary Impression: Lower back injury Additional Impression: Lumbar back pain Disposition: HOME / SELF CARE / HOMELESS Condition: STABLE Referrals: [facility] (PCP) Follow-up with your primary care physician in 24 to 48 hours OR FOLLOW UP WITH FAMILY MEDICINE: [address], [address] [place] [address] Patient Instructions: Back Pain, Adult, RICE - Routine Care for Injuries Additional Instructions: FOLLOW UP WITH NEUROLOGY: FOR DEFINITIVE MANAGEMENT of back pain [facility] [address] [place], [address] [place] [address] EMERGENCY DEPARTMENT GENERAL DISCHARGE INSTRUCTIONS Thank you for coming to [facility] Emergency Department (ED) today and trusting us with you care. We trust that you had a positive experience in our Emergency Department. If you wish to speak to the department management, you may call the Director at [phone]. YOUR FOLLOW UP INSTRUCTIONS ARE FOLLOWS: 1. Do you have a private Doctor? If you do not have a private doctor, please ask for a resource list of physicians or clinics that may be able to assist you with follow up care. 2. The Emergency Physicain has interpreted your x-rays. The X-Ray specialist will also review them. If there is a change in the findings, you will be notified in 48 hours when at all possible. 3. A lab test or culture has been done, your results will be reviewed and you will be notified if you need a change in treatment. ADDITIONAL INSTRUCTIONS AND INFORMATION: 1. Your care today has been supervised by a physician who is specially trained in emergency care. Many problems require more than one evaluation for a complete diagnosis and treatment. We recommend that you schedule your follow up appointment as recommended to ensure complete treatment of you illness or injury. If you are unable to obtain follow up care and continue to have a problem, or if your condition worsens, we recommend that you return to the ED. 2. We are not able to safely determine your condition over the phone nor are we able to give sound medical advice over the phone. For these safety reasons, if you call for medical advice we will ask you to come to the ED for further evaluation. 3. If you have any questions regarding these discharge instructions please call the ED at [phone]. SAFETY INFORMATION: In the interest of safety, wellness, and injury prevention; we encourage you to wear your sealbelt, if you smoke; quite smoking, and we encourage family to use a protective helmet for bicycling and other sporting events that present an increased risk for head injury. IF YOUR SYMPTOMS WORSEN OR NEW SYMPTOMS DEVELOP, OR YOU HAVE CONCERNS ABOUT YOUR CONDITION; OR IF YOUR CONDITION WORSENS WHILE YOU ARE WAITING FOR YOUR FOLLOW UP APPOINTMENT; EITHER CONTACT YOUR PRIMARY CARE DOCTOR, THE PHYSICIAN WHOSE NAME AND NUMBER YOU WERE GIVEN, OR RETURN TO THE ED IMMEDIATELY. [facility] Jul 16, 2021 01:01
[2021-07-16 01:22] LABS: BACTERIA,URINE 0 /HPF (0-FEW); RBC,URINE 0 /HPF (0-2); WBC,URINE 0 /HPF (0-4)
--- NOTE | 2021-07-16 05:08 | RAD ---
INDICATION: Reason: bl si pain / Spl. Instructions: / History: COMPARISON: June 03, 2021 IMPRESSION: Pelvis: 2 views obtained. Degenerative changes the bilateral hips as well as the partially visualized lower lumbar spine. Degenerative changes of sacroiliac joints. There are some surgical clips seen in the right lower quadrant. No evidence of dislocation at the hips. No definite acute fracture line is seen. Electronically signed by: Kirill Davis MD (07/16/2021 5:05 AM) [id number]
== END 2021-07-16 01:37 | disposition home or self-care (01) ==
LOC: ER 19:01
DX: S39.92XA Unspecified injury of lower back, initial encounter (principal); J44.9 Chronic obstructive pulmonary disease, unspecified; G40.909 Epilepsy, unspecified, not intractable, without status epilepticus; F20.9 Schizophrenia, unspecified; F31.9 Bipolar disorder, unspecified; Z87.820 Personal history of traumatic brain injury; Z90.89 Acquired absence of other organs; Z88.5 Allergy status to narcotic agent; Z88.6 Allergy status to analgesic agent; W18.09XA Striking against other object with subsequent fall, initial encounter; Y93.89 Activity, other specified; Y92.89 Other specified places as the place of occurrence of the external cause; Y99.8 Other external cause status
CPT/HCPCS: 72170; 81001; 99284

== ENCOUNTER 2021-10-05 14:33 | Emergency (ER) | payer MEDICARE, OTHER ==
[~2021-10-05] VITALS: Ht 172.7 cm; Wt 95.0 kg
[2021-10-05] MEDS ORDERED: IV NORMAL SALINE 1000ML BAG 1,000 ML IV ONE (15:00)
[2021-10-05 15:25] LABS: BASO % 0 % (0-3); EOS # 0.1 x10^3/uL (0.0-0.7); EOS % 2 % (0-3); HEMATOCRIT 36.6 % (39.0-53.0); HEMOGLOBIN 12.3 g/dL (13.0-17.5); LYMPH # 1.8 x10^3/uL (1.0-4.8); LYMPH % 29 % (24-48); MEAN CORPUSCULAR HEMOGLOBIN 30 pg (25-35); MEAN CORPUSCULAR HGB CONC 34 g/dL (31-37); MEAN CORPUSCULAR VOLUME 89 fL (79-100); MONO # 0.7 x10^3/uL (0.0-1.1); MONO % 11 % (0-9); NEUT # 3.6 x10^3/uL (1.8-7.7); NEUT % 57 % (31-73); PLATELET COUNT 179 x10^3/uL (140-400); RED CELL DISTRIBUTION WIDTH 13.1 % (11.5-14.5); WHITE BLOOD COUNT 6.3 x10^3/uL (4.0-11.0)
[2021-10-05 15:27] LABS: CALCIUM 8.5 mg/dL (8.5-10.1); CREATININE 0.9 mg/dL (0.7-1.3); GFR 89.7; POTASSIUM 3.5 mmol/L (3.5-5.1)
[2021-10-05 15:33] LABS: ALBUMIN/GLOBULIN RATIO 1.4 (1.0-1.7); MAGNESIUM 1.8 mg/dL (1.8-2.4); TOTAL BILIRUBIN 0.1 mg/dL (0.2-1.0); TOTAL PROTEIN 6.9 g/dL (6.4-8.2)
[2021-10-05 15:37] LABS: BILIRUBIN,URINE NEGATIVE (NEG); CLARITY,URINE CLEAR; COLOR,URINE YELLOW
[2021-10-05 15:38] LABS: BACTERIA,URINE 0 /HPF (0-FEW); NITRITE,URINE NEGATIVE (NEG); PROTEIN,URINE NEGATIVE (NEG-TRACE); RBC,URINE 0 /HPF (0-2); UROBILINOGEN,URINE 0.2 mg/dL (0.2 mg/dL); WBC,URINE 0 /HPF (0-4)
[2021-10-05] MEDS ORDERED: LOPE-101 PO (16:59)
--- NOTE | 2021-10-05 17:00 | PHYS DOC ---
Past Medical History Past Medical History: Asthma, COPD, Diabetes-Type II, Hypertension, Seizure Additional Past Medical Histor: patient with cognitive deficit, unable to obtain Past Surgical History: Other Additional Past Surgical Histo: Unknown, pt. poor historian, abd sx Smoking Status: Never Smoker Alcohol Use: None Drug Use: None General Adult EDM: Chief Complaint: DIARRHEA HPI: HPI: Patient is a 51 year old male with history of cognitive deficit currently in a care home, hypertension, diabetes type 2, seizures, COPD, who presents the ED today from a care home to be evaluated for diarrhea. Patient reports 2-3 episodes of diarrhea that began this afternoon after having Go Chicken Go for lunch. Patient denies any nausea, vomiting, abdominal pain. Review of Systems: Review of Systems: Constitutional: Denies fever or chills. [] Eyes: Denies change in visual acuity. [] HENT: Denies nasal congestion or sore throat. [] Respiratory: Denies cough or shortness of breath. [] Cardiovascular: Denies chest pain or edema. [] GI: Reports diarrhea, denies any abdominal pain, nausea, vomiting, bloody stools : Denies dysuria. [] Musculoskeletal: Denies back pain or joint pain. [] Integument: Denies rash. [] Neurologic: Denies headache, focal weakness or sensory changes. [] ] Psychiatric: Denies depression or anxiety. [] Heart Score: C/O Chest Pain: N/A Risk Factors: Risk Factors: DM, Current or recent (<one month) smoker, HTN, HLP, family history of CAD, obesity. Risk Scores: Score 0 - 3: 2.5% MACE over next 6 weeks - Discharge Home Score 4 - 6: 20.3% MACE over next 6 weeks - Admit for Clinical Observation Score 7 - 10: 72.7% MACE over next 6 weeks - Early Invasive Strategies Current Medications: Current Medications Medications (Trade) Dose Ordered Sig/Farideh Start Time Stop Time Status Last Admin Dose Admin Sodium Chloride 1,000 ml @ 1,000 mls/hr 1X ONCE 10/05/21 15:00 10/05/21 15:59 DC 10/05/21 15:00 1,000 MLS/HR Allergies: Allergies: Allergies Coded Allergies Type Severity Reaction Last Updated Verified acetaminophen Allergy Intermediate rash 10/05/21 Yes codeine Allergy Intermediate rash 10/05/21 Yes methylphenidate Allergy Intermediate 10/05/21 Yes Physical Exam: PE: Constitutional: Well developed, well nourished, no acute distress, non-toxic appearance. [] HENT: Normocephalic, atraumatic, bilateral external ears normal, oropharynx moist, no oral exudates, nose normal. [] Eyes: PERRLA, EOMI, conjunctiva normal, no discharge. [] Neck: Normal range of motion, no tenderness, supple, no stridor. [] Cardiovascular:Heart rate regular rhythm, no murmur [] Lungs & Thorax: Bilateral breath sounds clear to auscultation [] Abdomen: Bowel sounds normal, soft, no tenderness, no masses, no pulsatile masses. [] Skin: Warm, dry, no erythema, no rash. [] Back: No tenderness, no CVA tenderness. [] Extremities: No tenderness, no cyanosis, no clubbing, ROM intact, no edema. [] Neurologic: Alert and oriented X 3, normal motor function, normal sensory function, no focal deficits noted. [] Psychologic: Affect normal, judgement normal, mood normal. [] Current Patient Data: Labs: Laboratory Tests Test 10/05/21 15:00 10/05/21 15:10 White Blood Count 6.3 x10^3/uL (4.0-11.0) Red Blood Count 4.10 x10^6/uL (4.30-5.70) L Hemoglobin 12.3 g/dL (13.0-17.5) L Hematocrit 36.6 % (39.0-53.0) L Mean Corpuscular Volume 89 fL (79-100) Mean Corpuscular Hemoglobin 30 pg (25-35) Mean Corpuscular Hemoglobin Concent 34 g/dL (31-37) Red Cell Distribution Width 13.1 % (11.5-14.5) Platelet Count 179 x10^3/uL (140-400) Neutrophils (%) (Auto) 57 % (31-73) Lymphocytes (%) (Auto) 29 % (24-48) Monocytes (%) (Auto) 11 % (0-9) H Eosinophils (%) (Auto) 2 % (0-3) Basophils (%) (Auto) 0 % (0-3) Neutrophils # (Auto) 3.6 x10^3/uL (1.8-7.7) Lymphocytes # (Auto) 1.8 x10^3/uL (1.0-4.8) Monocytes # (Auto) 0.7 x10^3/uL (0.0-1.1) Eosinophils # (Auto) 0.1 x10^3/uL (0.0-0.7) Basophils # (Auto) 0.0 x10^3/uL (0.0-0.2) Sodium Level 137 mmol/L (136-145) Potassium Level 3.5 mmol/L (3.5-5.1) Chloride Level 101 mmol/L (98-107) Carbon Dioxide Level 27 mmol/L (21-32) Anion Gap 9 (6-14) Blood Urea Nitrogen 12 mg/dL (8-26) Creatinine 0.9 mg/dL (0.7-1.3) Estimated GFR (Cockcroft-Gault) 89.7 BUN/Creatinine Ratio 13 (6-20) Glucose Level 96 mg/dL (70-99) Calcium Level 8.5 mg/dL (8.5-10.1) Magnesium Level 1.8 mg/dL (1.8-2.4) Total Bilirubin 0.1 mg/dL (0.2-1.0) L Aspartate Amino Transferase (AST) 15 U/L (15-37) Alanine Aminotransferase (ALT) 16 U/L (16-63) Alkaline Phosphatase 56 U/L (46-116) Total Protein 6.9 g/dL (6.4-8.2) Albumin 4.0 g/dL (3.4-5.0) Albumin/Globulin Ratio 1.4 (1.0-1.7) Lipase 64 U/L (73-393) L Urine Collection Type Unknown Urine Color Yellow Urine Clarity Clear Urine pH 7.0 (<5.0-8.0) Urine Specific [place] 1.010 (1.000-1.030) Urine Protein Negative mg/dL (NEG-TRACE) Urine Glucose (UA) Negative mg/dL (NEG) Urine Ketones (Stick) Negative mg/dL (NEG) Urine Blood Negative (NEG) Urine Nitrite Negative (NEG) Urine Bilirubin Negative (NEG) Urine Urobilinogen Dipstick 0.2 mg/dL (0.2 mg/dL) Urine Leukocyte Esterase Negative (NEG) Urine RBC 0 /HPF (0-2) Urine WBC 0 /HPF (0-4) Urine Bacteria 0 /HPF (0-FEW) Laboratory Tests 10/05/21 15:00 Laboratory Tests 10/05/21 15:00 Vital Signs: Vital Signs Date Time Temp Pulse Resp B/P (MAP) Pulse Ox O2 Delivery O2 Flow Rate FiO2 10/05/21 14:36 98.1 70 18 100/60 (73) 97 Room Air 98.1 EKG: EKG: [] Radiology/Procedures: Radiology/Procedures: [] Course & Med Decision Making: Course & Med Decision Making Pertinent Labs and Imaging studies reviewed. (See chart for details) This is a 51-year-old male patient presenting to the ED today with diarrhea that began this afternoon after having Go Chicken Go for lunch. CBC with a normal WBC, hemoglobin 12.3 with hematocrit of 36.6, this is patient's baseline. CMP with no acute findings. Patient did not have any diarrhea in the ED. He was given a liter of fluid. He was able to tolerate a meal in the ED. Was discharged back to the [facility] Disclaimer: Drag Disclaimer: This electronic medical record was generated, in whole or in part, using a voice recognition dictation system. Departure Departure Impression: Primary Impression: Diarrhea Qualified Codes: R19.7 - Diarrhea, unspecified Disposition: HOME / SELF CARE / HOMELESS Condition: STABLE Referrals: DAIN PANTOJA (PCP) follow up next week with your doctor Patient Instructions: Diarrhea Additional Instructions: You were evaluated in the emergency room for diarrhea, your work-up in the emergency room is negative for any acute findings. Please follow-up with your own primary care doctor next week, push fluids, maintain good hand hygiene. Come back to the ED at any point symptoms worsen Scripts Loperamide HCl (Imodium A-D) 2 Mg Capsule 2 MG PO Q6HRS PRN for DIARRHEA, #14 CAP Prov: JORGE LUIS JOHNSON LEASING PROPERTY MANAGER 10/05/21 JORGE LUIS JOHNSON LEASING PROPERTY MANAGER Oct 05, 2021 17:00
[2021-10-05 17:14] VITALS: BP 143/70
== END 2021-10-05 17:16 | disposition home or self-care (01) ==
LOC: ER 14:33
DX: R19.7 Diarrhea, unspecified (principal); J44.9 Chronic obstructive pulmonary disease, unspecified; E11.9 Type 2 diabetes mellitus without complications; I10 Essential (primary) hypertension; Z88.5 Allergy status to narcotic agent; Z88.6 Allergy status to analgesic agent; Z88.1 Allergy status to other antibiotic agents
CPT/HCPCS: 80053; 81001; 83690; 83735; 85025; 96360; 96361; 99283; J7030

== ENCOUNTER 2021-12-16 13:49 | Emergency (ER) | payer MEDICARE, OTHER ==
[~2021-12-16] VITALS: Ht 175.3 cm; Wt 90.0 kg
[~2021-12-16 13:49] MED LIST changes: +LOPE-101 PO
[2021-12-16 14:49] LABS: BASO % 0 % (0-3); EOS # 0.1 x10^3/uL (0.0-0.7); EOS % 2 % (0-3); HEMATOCRIT 33.7 % (39.0-53.0); HEMOGLOBIN 11.7 g/dL (13.0-17.5); LYMPH # 1.9 x10^3/uL (1.0-4.8); LYMPH % 33 % (24-48); MEAN CORPUSCULAR HEMOGLOBIN 30 pg (25-35); MEAN CORPUSCULAR HGB CONC 35 g/dL (31-37); MEAN CORPUSCULAR VOLUME 88 fL (79-100); MONO # 0.7 x10^3/uL (0.0-1.1); MONO % 11 % (0-9); NEUT # 3.1 x10^3/uL (1.8-7.7); NEUT % 53 % (31-73); PLATELET COUNT 158 x10^3/uL (140-400); RED BLOOD COUNT 3.86 x10^6/uL (4.30-5.70); RED CELL DISTRIBUTION WIDTH 12.9 % (11.5-14.5); WHITE BLOOD COUNT 5.8 x10^3/uL (4.0-11.0)
[2021-12-16] MEDS ORDERED: IV RINGERS,LACTATED 1000ML 1,000 ML IV ONE (15:00)
[2021-12-16 15:08] LABS: CALCIUM 8.2 mg/dL (8.5-10.1); CREATININE 0.8 mg/dL (0.7-1.3); GFR 102.7; POTASSIUM 3.2 mmol/L (3.5-5.1)
[2021-12-16 15:13] LABS: ALBUMIN 3.5 g/dL (3.4-5.0); ALBUMIN/GLOBULIN RATIO 1.1 (1.0-1.7); TOTAL BILIRUBIN 0.2 mg/dL (0.2-1.0); TOTAL PROTEIN 6.6 g/dL (6.4-8.2)
[2021-12-16 15:45] LABS: BACTERIA,URINE 0 /HPF (0-FEW); RBC,URINE 0 /HPF (0-2); WBC,URINE 0 /HPF (0-4)
--- NOTE | 2021-12-16 16:18 | PHYS DOC ---
Past Medical History Past Medical History: Asthma, COPD, Diabetes-Type II, Hypertension, Seizure Additional Past Medical Histor: patient with cognitive deficit, unable to obtain Past Surgical History: Other Additional Past Surgical Histo: abd surgery Smoking Status: Unknown if ever smoked Alcohol Use: Occasionally Drug Use: None General Adult EDM: Chief Complaint: ALCOHOL INTOXICATION HPI: HPI: Patient is a 51 year old male who presents with alxohol intoxication. Patient states he "feels really great," but that he "had too much to drink." He reports having taken 5 "shots of 90 proof watermelon, coffee and banana." Patient is requesting to "dry out." He denies all other complaints at this time. Review of Systems: Review of Systems: ROS negative or noncontributory except as mentioned in HPI. Heart Score: C/O Chest Pain: No Current Medications: Current Medications Medications (Trade) Dose Ordered Sig/Farideh Start Time Stop Time Status Last Admin Dose Admin Ringer's Solution 1,000 ml @ 1,000 mls/hr 1X ONCE 12/16/21 15:00 12/16/21 15:59 12/16/21 15:00 1,000 MLS/HR Allergies: Allergies: Allergies Coded Allergies Type Severity Reaction Last Updated Verified acetaminophen Allergy Intermediate rash 10/05/21 Yes codeine Allergy Intermediate rash 10/05/21 Yes methylphenidate Allergy Intermediate 10/05/21 Yes Physical Exam: PE: Constitutional: Well developed, well nourished, no acute distress, non-toxic appearance. HENT: Normocephalic, atraumatic, bilateral external ears normal, nose normal. Eyes: PERRLA, EOMI, conjunctiva normal, no discharge. Neck: Normal range of motion, no stridor. Skin: Warm, dry, no erythema, no rash. Extremities: No tenderness, no cyanosis, no clubbing, ROM intact, no edema. Neurologic: Alert and oriented, motor and sensory function grossly intact. Psychologic: Intoxicated, affect cooperative, judgment fair, mood "really great." Current Patient Data: Labs: Laboratory Tests Test 12/16/21 14:40 12/16/21 15:28 White Blood Count 5.8 x10^3/uL (4.0-11.0) Red Blood Count 3.86 x10^6/uL (4.30-5.70) L Hemoglobin 11.7 g/dL (13.0-17.5) L Hematocrit 33.7 % (39.0-53.0) L Mean Corpuscular Volume 88 fL (79-100) Mean Corpuscular Hemoglobin 30 pg (25-35) Mean Corpuscular Hemoglobin Concent 35 g/dL (31-37) Red Cell Distribution Width 12.9 % (11.5-14.5) Platelet Count 158 x10^3/uL (140-400) Neutrophils (%) (Auto) 53 % (31-73) Lymphocytes (%) (Auto) 33 % (24-48) Monocytes (%) (Auto) 11 % (0-9) H Eosinophils (%) (Auto) 2 % (0-3) Basophils (%) (Auto) 0 % (0-3) Neutrophils # (Auto) 3.1 x10^3/uL (1.8-7.7) Lymphocytes # (Auto) 1.9 x10^3/uL (1.0-4.8) Monocytes # (Auto) 0.7 x10^3/uL (0.0-1.1) Eosinophils # (Auto) 0.1 x10^3/uL (0.0-0.7) Basophils # (Auto) 0.0 x10^3/uL (0.0-0.2) Sodium Level 136 mmol/L (136-145) Potassium Level 3.2 mmol/L (3.5-5.1) L Chloride Level 99 mmol/L (98-107) Carbon Dioxide Level 24 mmol/L (21-32) Anion Gap 13 (6-14) Blood Urea Nitrogen 9 mg/dL (8-26) Creatinine 0.8 mg/dL (0.7-1.3) Estimated GFR (Cockcroft-Gault) 102.7 BUN/Creatinine Ratio 11 (6-20) Glucose Level 92 mg/dL (70-99) Calcium Level 8.2 mg/dL (8.5-10.1) L Total Bilirubin 0.2 mg/dL (0.2-1.0) Aspartate Amino Transferase (AST) 19 U/L (15-37) Alanine Aminotransferase (ALT) 17 U/L (16-63) Alkaline Phosphatase 79 U/L (46-116) Total Protein 6.6 g/dL (6.4-8.2) Albumin 3.5 g/dL (3.4-5.0) Albumin/Globulin Ratio 1.1 (1.0-1.7) Ethyl Alcohol Level 115 mg/dL (0-10) H Urine Collection Type Unknown Urine Color (Auto) Colorless Urine Turbidity Clear Urine pH (Auto) 6.0 (<5.0-8.0) Urine Specific [place] 1.004 (1.000-1.030) Urine Protein (Auto) Negative mg/dL (Negative) Urine Glucose (Auto)(UA) Negative mg/dL (Negative) Urine Ketones (Auto) Negative mg/dL (Negative) Urine Blood (Auto) Negative (Negative) Urine Nitrite Negative (Negative) Urine Bilirubin (Auto) Negative (Negative) Urine Urobilinogen (Auto) Normal mg/dL (Normal) Urine Leukocyte Esterase (Auto) Negative (Negative) Urine RBC 0 /HPF (0-2) Urine WBC 0 /HPF (0-4) Urine Bacteria 0 /HPF (0-FEW) Laboratory Tests 12/16/21 14:40 Laboratory Tests 12/16/21 14:40 Vital Signs: Vital Signs Date Time Temp Pulse Resp B/P (MAP) Pulse Ox O2 Delivery O2 Flow Rate FiO2 12/16/21 17:50 88 17 136/77 (96) 98 12/16/21 13:56 98.0 82 18 113/69 (84) 96 Room Air 98.0 Course & Med Decision Making: Course & Med Decision Making Pertinent Labs and Imaging studies reviewed. (See chart for details) Patient is a 51-year-old male who presents with alcohol intoxication. Patient denies chronic alcohol use disorder, just that he had too many shots today. Patient was provided with IV fluids. Labs were drawn. Work-up today unremarkable. Patient was discharged to home using a cab voucher, clinically sober. Patient was counseled on alcohol use and instructed to eat foods rich in potassium. Return precautions were provided. Patient understands and is agreeable to discharge plan. Dragon Disclaimer: Dragon Disclaimer: This electronic medical record was generated, in whole or in part, using a voice recognition dictation system. Departure Departure Impression: Primary Impression: Alcohol intoxication Qualified Codes: F10.920 - Alcohol use, unspecified with intoxication, uncomplicated Additional Impression: Hypokalemia Disposition: 01 HOME / SELF CARE / HOMELESS Condition: IMPROVED Referrals: DAIN PANTOJA (PCP) Patient Instructions: Alcohol Intoxication, [id number], How Much is Too Much Alcohol, [id number], Potassium Content of Foods Additional Instructions: EMERGENCY DEPARTMENT GENERAL DISCHARGE INSTRUCTIONS Thank you for coming to [facility] Emergency Department (ED) today and trusting us with you care. We trust that you had a positive experience in our Emergency Department. If you wish to speak to the department management, you may call the director at . YOUR FOLLOW UP INSTRUCTIONS ARE FOLLOWS: 1. Follow up with your primary care doctor. If you do not have a primary doctor, please ask for a resource list of physicians or clinics that may be able to assist you with follow up care. 2. The emergency provider has interpreted your imaging studies, if any were ordered. The radiology retail presentation specialist also reviewed them. If there is a change in the findings, you will be notified in 48 hours when at all possible. 3. If a lab test or culture has been done, your results will be reviewed and you will be notified if you need a change in treatment. 4. Follow instructions verbalized to you and refer to the printouts if needed. ADDITIONAL INSTRUCTIONS AND INFORMATION: 1. Your care today has been supervised by a physician who is specially trained in emergency care. Many problems require more than one evaluation for a complete diagnosis and treatment. We recommend that you schedule your follow up appointment as recommended to ensure complete treatment of you illness or injury. If you are unable to obtain follow up care and continue to have a problem, or if your condition worsens, we recommend that you return to the ED. 2. We are not able to safely determine your condition over the phone nor are we able to give sound medical advice over the phone. For these safety reasons, if you call for medical advice we will ask you to come to the ED for further evaluation. 3. If you have any questions regarding these discharge instructions please call the ED at . SAFETY INFORMATION: In the interest of safety, wellness, and injury prevention; we encourage you to wear your seat belt, if you smoke; quite smoking, and we encourage family to use a protective helmet for bicycling and other sporting events that present an increased risk for head injury. IF YOUR SYMPTOMS WORSEN OR NEW SYMPTOMS DEVELOP, OR YOU HAVE CONCERNS ABOUT YOUR CONDITION; OR IF YOUR CONDITION WORSENS WHILE YOU ARE WAITING FOR YOUR FOLLOW UP APPOINTMENT; EITHER CONTACT YOUR PRIMARY CARE DOCTOR, THE PHYSICIAN WHOSE NAME AND NUMBER YOU WERE GIVEN, OR RETURN TO THE ED IMMEDIATELY. NHUNG BUTLER December 16, 2021 16:18
[2021-12-16 17:50] VITALS: BP 136/77
== END 2021-12-16 18:12 | disposition home or self-care (01) ==
LOC: ER 13:49
DX: F10.129 Alcohol abuse with intoxication, unspecified (principal); Y90.5 Blood alcohol level of 100-119 mg/100 ml; J44.9 Chronic obstructive pulmonary disease, unspecified; E11.9 Type 2 diabetes mellitus without complications; I10 Essential (primary) hypertension; Z88.5 Allergy status to narcotic agent; Z88.6 Allergy status to analgesic agent; Z88.8 Allergy status to other drugs, medicaments and biological substances
CPT/HCPCS: 36415; 80053; 81001; 85025; 96360; 99283; G0480; J7120

== ENCOUNTER 2021-12-24 14:27 | Emergency (ER) | payer MEDICARE, OTHER ==
[~2021-12-24] VITALS: Ht 175.3 cm; Wt 90.0 kg
--- NOTE | 2021-12-24 15:15 | PHYS DOC ---
Past Medical History Past Medical History: Asthma, COPD, Diabetes-Type II, Hypertension, Seizure Additional Past Medical Histor: patient with cognitive deficit, unable to obtain Past Surgical History: Other Additional Past Surgical Histo: abd surgery Smoking Status: Current Every Day Smoker Additional Information: 1 PK/DAY Alcohol Use: None Drug Use: None General Adult EDM: Chief Complaint: DIARRHEA HPI: HPI: 51-year-old male, past medical history of bipolar, schizophrenia, hypertension, asthma, presents with 3 hours of watery diarrhea, 9 episodes, nonbloody. No f/c/n/v/cp/sob. Mild abd pain and gassiness. No travel. No known sick contacts. Review of Systems: Review of Systems: Constitutional: Denies fever or chills. [] Eyes: Denies change in visual acuity. [] HENT: Denies nasal congestion or sore throat. [] Respiratory: Denies cough or shortness of breath. [] Cardiovascular: Denies chest pain or edema. [] GI: Denies abdominal pain, nausea, vomiting, bloody stools. + watery, nonbloody diarrhea [] : Denies dysuria. [] Musculoskeletal: Denies back pain or joint pain. [] Integument: Denies rash. [] Neurologic: Denies headache, focal weakness or sensory changes. [] Endocrine: Denies polyuria or polydipsia. [] Lymphatic: Denies swollen glands. [] Psychiatric: Denies depression or anxiety. [] Heart Score: C/O Chest Pain: No Risk Factors: Risk Factors: DM, Current or recent (<one month) smoker, HTN, HLP, family history of CAD, obesity. Risk Scores: Score 0 - 3: 2.5% MACE over next 6 weeks - Discharge Home Score 4 - 6: 20.3% MACE over next 6 weeks - Admit for Clinical Observation Score 7 - 10: 72.7% MACE over next 6 weeks - Early Invasive Strategies Allergies: Allergies: Allergies Coded Allergies Type Severity Reaction Last Updated Verified acetaminophen Allergy Intermediate rash 12/24/21 Yes codeine Allergy Intermediate rash 12/24/21 Yes methylphenidate Allergy Intermediate 12/24/21 Yes Physical Exam: PE: Constitutional: Well developed, well nourished, no acute distress, non-toxic appearance. [] HENT: Normocephalic, atraumatic, bilateral external ears normal, oropharynx moist, no oral exudates, nose normal. [] Eyes: PERRLA, EOMI, conjunctiva normal, no discharge. [] Neck: Normal range of motion, no tenderness, supple, no stridor. [] Cardiovascular:Heart rate regular rhythm, no murmur [] Lungs & Thorax: Bilateral breath sounds clear to auscultation [] Abdomen: Bowel sounds normal, soft, no tenderness, no masses, no pulsatile masses. [] Skin: Warm, dry, no erythema, no rash. [] Back: No tenderness, no CVA tenderness. [] Extremities: No tenderness, no cyanosis, no clubbing, ROM intact, no edema. [] Neurologic: Alert and oriented X 3, normal motor function, normal sensory function, no focal deficits noted. [] Psychologic: Affect normal, judgement normal, mood normal. [] Current Patient Data: Vital Signs: Vital Signs Date Time Temp Pulse Resp B/P (MAP) Pulse Ox O2 Delivery O2 Flow Rate FiO2 12/24/21 14:38 98.2 68 16 135/77 (96) 96 Room Air 98.2 EKG: EKG: [] Radiology/Procedures: Radiology/Procedures: [] Course & Med Decision Making: Course & Med Decision Making Pertinent Labs and Imaging studies reviewed. (See chart for details) Additional Social History: PMD from non-affiliated facility. Patient Lives at home. Family History: Non-pertinent to today's complaint. Nursing Notes Reviewed Previous Medical Records requested via [facility] Web: Reviewed by me. EMERGENCY DEPARTMENT COURSE/ MEDICAL DECISION MAKING: I examined the patient, evaluated and addressed patient's chief complaint. 51-year-old patient, bipolar, and schizophrenia, asthma, presents with 9 episodes of watery, nonbloody diarrhea within the last 3 hours. No known new foods or sick contacts or travel. No new medications. Vitals are within normal, patent patient is well-appearing and abdomen is soft nontender and only minimally distended. Very low suspicion for acute intra-abdominal surgical pathology. Pending CBC/Chem. Patient tolerating PO without any difficulty. Found to mild hypokalemia at 3.2. s/p KCl 40meq repletion. Stable for dc home with loperamide if needed and routine pmd f/u. Likely viral enteritis. Return precautions given. On re-assessment, patient feels much better. The patient understands that todays Emergency Department evaluation does not represent a comprehensive medical workup, and it is impossible to diagnose all possible illnesses from a single Emergency Department visit. The patient verbalized understanding that it is absolutely necessary to have follow-up with regular primary care physician within 1-2 days for more detailed workup and continued exam. I explained the findings and plan to the patient, who expressed verbal understanding and agreed with plan for discharge and follow up. The patient was given after care instructions and welcomed to return to the ED for re-evaluation in 8-12 hours, especially for any new or worsening symptom s. Patient's blood pressure was elevated (>120/80) but appears stable without evidence of end organ damage, malignant hypertension, hypertensive emergency or urgency. The patient was counseled about the risks of hypertension and urged to pursue outpatient monitoring and therapy within a week with their primary care physician. The patient was stable at the time of discharge. DIAGNOSTIC IMPRESSION: 1. diarrhea DISPOSITION: Disposition: Discharge Home. Condition: Improved Follow-Up: PMD Prescriptions: loperamide Return to the Emergency Department for new or worsening symptoms. Torie Disclaimer: Torie Disclaimer: This electronic medical record was generated, in whole or in part, using a voice recognition dictation system. Departure Departure Impression: Primary Impression: Diarrhea Disposition: HOME / SELF CARE / HOMELESS Condition: STABLE Referrals: DAIN PANTOJA (PCP) Scripts Loperamide Hcl (LOPERAMIDE) 2 Mg Tablet 1 TAB PO Q4HRS for loose stool, #10 TAB 0 Refills Prov: DEVONTE WHITE MD 12/24/21 DEVONTE WHITE MD December 24, 2021 15:15
[2021-12-24 15:17] LABS: BASO % 0 % (0-3); EOS # 0.1 x10^3/uL (0.0-0.7); EOS % 3 % (0-3); HEMATOCRIT 36.1 % (39.0-53.0); HEMOGLOBIN 12.4 g/dL (13.0-17.5); LYMPH # 1.5 x10^3/uL (1.0-4.8); LYMPH % 34 % (24-48); MEAN CORPUSCULAR HEMOGLOBIN 30 pg (25-35); MEAN CORPUSCULAR HGB CONC 34 g/dL (31-37); MEAN CORPUSCULAR VOLUME 87 fL (79-100); MONO # 0.4 x10^3/uL (0.0-1.1); MONO % 9 % (0-9); NEUT # 2.4 x10^3/uL (1.8-7.7); NEUT % 55 % (31-73); PLATELET COUNT 188 x10^3/uL (140-400); RED BLOOD COUNT 4.14 x10^6/uL (4.30-5.70); RED CELL DISTRIBUTION WIDTH 12.8 % (11.5-14.5); WHITE BLOOD COUNT 4.3 x10^3/uL (4.0-11.0)
[2021-12-24 15:32] LABS: CALCIUM 8.4 mg/dL (8.5-10.1); CREATININE 0.9 mg/dL (0.7-1.3); GFR 89.7; POTASSIUM 3.2 mmol/L (3.5-5.1)
[2021-12-24 15:35] LABS: ALBUMIN 3.6 g/dL (3.4-5.0); ALBUMIN/GLOBULIN RATIO 1.1 (1.0-1.7); TOTAL BILIRUBIN 0.3 mg/dL (0.2-1.0); TOTAL PROTEIN 6.9 g/dL (6.4-8.2)
[2021-12-24] MEDS ORDERED: LOPE2TAB27 PO (15:43)
[2021-12-24] MEDS ORDERED: POTASSIUM CHLORIDE 20 MEQ TABLET.ER. PO ONE (16:00)
[2021-12-24 16:43] VITALS: BP 111/69
== END 2021-12-24 16:16 | disposition home or self-care (01) ==
LOC: ER 14:27
DX: R19.7 Diarrhea, unspecified (principal); J44.9 Chronic obstructive pulmonary disease, unspecified; E11.9 Type 2 diabetes mellitus without complications; I10 Essential (primary) hypertension; F17.200 Nicotine dependence, unspecified, uncomplicated; Z88.5 Allergy status to narcotic agent; Z88.8 Allergy status to other drugs, medicaments and biological substances
CPT/HCPCS: 36415; 80053; 85025; 99283